=== PATIENT | female | born 1965 | race Caucasian/White ===

== ENCOUNTER 2017-08-06 15:55 | Emergency (ER) | payer MEDICAID, OTHER, SELFPAY ==
[~2017-08-06] VITALS: Ht 154.9 cm; Wt 82.7 kg
[~2017-08-06 15:55] MED LIST: ADVA115INH INH; ALBU17IN INH; ALBU83IN INH; AMLO5TAB2 PO; AZIT500T2 PO; CELE40TA OR; COMBIN INH; CYCL10TA PO; DUONSOL INH; FERR324T2 PO; FLUT22IN INH; HYDR1CAP25 PO; LEXA1TAB PO; LISI20TA3 PO; LYRI75CA PO; MOME50SP; MTV PO; NAPR500T2 PO; NAPR500T3 PO; No Historical Meds; SING10TA32 PO; SOMA250T PO; TESS100C PO; TRAM200T17 PO; TRAZADONE PO; VENTAER INH; [UNRECOGNIZED DRUG - CODE] PO
[2017-08-06] MEDS ORDERED: MECLIZINE 25 MG TABLET PO ONE (18:15)
[2017-08-06 18:38] LABS: BASO # 0.1 10^3/uL (0.0-0.2); BASO % 1.6 % (0.0-1.0); EOS # 0.3 10^3/uL (0.0-0.50); EOS % 5.1 % (0.0-3.0); IMMATURE GRANULOCYTE % 0.3 % (0-0); LYMPH # 1.4 10^3/uL (1.5-4.5); LYMPH % 22.7 % (24.0-44.0); MEAN CORPUSCULAR HEMOGLOBIN 32.3 pg (27.0-33.0); MEAN CORPUSCULAR HGB CONC 34.9 g/dl (32.0-36.5); MEAN CORPUSCULAR VOLUME 92.5 fl (80.0-96.0); MONO # 0.8 10^3/uL (0.0-0.8); MONO % 13.2 % (0.0-5.0); NEUTROPHILS # 3.6 10^3/uL (1.8-7.7); NEUTROPHILS % 57.1 % (36.0-66.0); PLATELET COUNT, AUTOMATED 143 10^3/uL (150-450); RED CELL DISTRIBUTION WIDTH 13.3 % (11.5-14.5); WHITE BLOOD COUNT 6.3 10^3/uL (4.0-10.0)
--- NOTE | 2017-08-06 18:43 | ECGEPIP ---
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
[2017-08-06 19:09] LABS: ANION GAP 7 MEQ/L (8-16); BLOOD UREA NITROGEN 16 MG/DL (7-18); CALCIUM LEVEL 9.4 MG/DL (8.5-10.1); CARBON DIOXIDE LEVEL 27 MEQ/L (21-32); CHLORIDE LEVEL 103 MEQ/L (98-107); GLOMERULAR FILTRATION RATE > 60.0 (>51); GLUCOSE, FASTING 93 MG/DL (70-105); POTASSIUM SERUM 4.2 MEQ/L (3.5-5.1); SODIUM LEVEL 137 MEQ/L (136-145)
--- NOTE | 2017-08-06 19:14 | REP ---
Chest x-ray: Two views. History: Dizziness cough. . Comparison study: July 29, 2016 . Findings: The lungs are well inflated and free of infiltrate. The pleural angles are sharp. The heart size is normal. Pulmonary vasculature is not increased. No significant bony abnormality is seen. Impression: Negative chest x-ray. Signed by Dionte Coates MD 08/06/2017 07:05 P
--- NOTE | 2017-08-06 19:49 | REP ---
Head CT without contrast: History: Dizziness. Comparison study: July 31, 2016 CT findings: Bone window settings demonstrate an intact bony calvarium. There is mild vascular calcification in the distal carotid arteries again seen. There is no evidence of skull fracture or incidental bony calvarial lesion. The visualized paranasal sinuses appear clear. No intraorbital abnormality is seen. On soft tissue window setting images; the lateral, third, and fourth ventricles are normal in size and position. Lomas-white differentiation pattern is normal above and below the tentorium. There are is no evidence of intracranial hemorrhage. No mass, edema, infarction, or midline shift is seen. No extra-axial fluid collection is appreciated. Impression: Mild vascular calcification, otherwise unremarkable noncontrast head CT. Signed by Dionte Coates MD 08/06/2017 08:36 P
[2017-08-06] MEDS ORDERED: amLODIPine 5 MG TAB PO ONE (20:30)
[2017-08-06] MEDS ORDERED: VENTAER IN (21:58)
[2017-08-06] MEDS ORDERED: MECL-68 PO (21:58)
[2017-08-06] MEDS ORDERED: NORV5TAB PO (21:58)
[2017-08-06 22:18] VITALS: BP 168/110
== END 2017-08-06 22:19 | disposition home or self-care (01) ==
LOC: M ED 15:55
DX: H81.399 Other peripheral vertigo, unspecified ear (principal); I10 Essential (primary) hypertension

== ENCOUNTER → 2017-08-27 | Outpatient (CLI) | payer OTHER ==
[~2017-08-27] MED LIST changes: +MECL-68 PO; +NORV5TAB PO; +VENTAER IN
[2017-08-27 10:04] LABS: ALBUMIN/GLOBULIN RATIO 1.11 (1.00-1.93); ALKALINE PHOSPHATASE 69 U/L (45-117); ALT/SGPT 64 U/L (12-78); ANION GAP 7 MEQ/L (8-16); AST/SGOT 23 U/L (7-37); BILIRUBIN,TOTAL 0.4 MG/DL (0.2-1.0); BLOOD UREA NITROGEN 21 MG/DL (7-18); CALCIUM LEVEL 9.5 MG/DL (8.5-10.1); CARBON DIOXIDE LEVEL 28 MEQ/L (21-32); CHLORIDE LEVEL 100 MEQ/L (98-107); CHOLESTEROL LEVEL 262 MG/DL (<200); CREATININE FOR GFR 0.87 MG/DL (0.55-1.02); GLOMERULAR FILTRATION RATE > 60.0 (>51); GLUCOSE, FASTING 77 MG/DL (70-105); POTASSIUM SERUM 4.5 MEQ/L (3.5-5.1); SODIUM LEVEL 135 MEQ/L (136-145); T UPTAKE 34 % (30-39); TOTAL PROTEIN 7.6 GM/DL (6.4-8.2); TRIGLYCERIDES LEVEL 107 MG/DL (<150)
[2017-08-27 10:29] LABS: BASO % 0.3 % (0.0-1.0); EOS # 0.1 10^3/uL (0.0-0.50); EOS % 0.7 % (0.0-3.0); IMMATURE GRANULOCYTE % 0.5 % (0-0); LYMPH # 1.7 10^3/uL (1.5-4.5); LYMPH % 17.5 % (24.0-44.0); MEAN CORPUSCULAR HEMOGLOBIN 32.6 pg (27.0-33.0); MEAN CORPUSCULAR HGB CONC 34.9 g/dl (32.0-36.5); MEAN CORPUSCULAR VOLUME 93.4 fl (80.0-96.0); MONO # 1.1 10^3/uL (0.0-0.8); MONO % 11.4 % (0.0-5.0); NEUTROPHILS # 6.8 10^3/uL (1.8-7.7); NEUTROPHILS % 69.6 % (36.0-66.0); PLATELET COUNT, AUTOMATED 208 10^3/uL (150-450); WHITE BLOOD COUNT 9.7 10^3/uL (4.0-10.0)
== END ==
LOC: M LAB 08:19
PROVIDERS: ATTEND Physician Assistant Medical
DX: R07.9 Chest pain, unspecified (principal)

== ENCOUNTER → 2017-11-20 | Outpatient (CLI) | payer OTHER | LOC: M WUC 15:15 | DX: S83.412A Sprain of medial collateral ligament of left knee, initial encounter (principal); X58.XXXA Exposure to other specified factors, initial encounter; Y92.89 Other specified places as the place of occurrence of the external cause; Y99.9 Unspecified external cause status; Y93.9 Activity, unspecified | CPT/HCPCS: 73564 ==

== ENCOUNTER → 2018-02-12 | Outpatient (REF) | payer OTHER ==
[2018-02-12 12:50] LABS: BASO # 0.1 10^3/uL (0.0-0.2); BASO % 1.3 % (0.0-1.0); EOS # 0.2 10^3/uL (0.0-0.50); EOS % 2.5 % (0.0-3.0); HEMATOCRIT 45.7 % (36.0-47.0); HEMOGLOBIN 16.4 g/dl (12.0-15.5); IMMATURE GRANULOCYTE % 0.4 % (0-3.0); LYMPH # 1.6 10^3/uL (1.5-4.5); LYMPH % 18.9 % (24.0-44.0); MEAN CORPUSCULAR HEMOGLOBIN 32.3 pg (27.0-33.0); MEAN CORPUSCULAR HGB CONC 35.9 g/dl (32.0-36.5); MEAN CORPUSCULAR VOLUME 90.1 fl (80.0-96.0); MONO # 0.9 10^3/uL (0.0-0.8); MONO % 11.2 % (0.0-5.0); NEUTROPHILS # 5.5 10^3/uL (1.8-7.7); NEUTROPHILS % 65.7 % (36.0-66.0); PLATELET COUNT, AUTOMATED 198 10^3/uL (150-450); RED BLOOD COUNT 5.07 10^6/uL (4.00-5.40); RED CELL DISTRIBUTION WIDTH 12.6 % (11.5-14.5); WHITE BLOOD COUNT 8.3 10^3/uL (4.0-10.0)
[2018-02-12 13:26] LABS: ESTIMATED AVERAGE GLUCOSE 126 MG/DL (60-110)
[2018-02-12 13:30] LABS: ALBUMIN 4.2 GM/DL (3.2-5.2); ALBUMIN/GLOBULIN RATIO 1.08 (1.00-1.93); ALKALINE PHOSPHATASE 93 U/L (45-117); ALT/SGPT 70 U/L (12-78); ANION GAP 8 MEQ/L (8-16); AST/SGOT 30 U/L (7-37); BILIRUBIN,TOTAL 0.5 MG/DL (0.2-1.0); BLOOD UREA NITROGEN 48 MG/DL (7-18); CARBON DIOXIDE LEVEL 29 MEQ/L (21-32); CHLORIDE LEVEL 93 MEQ/L (98-107); CHOLESTEROL LEVEL 234 MG/DL (<200); CHOLESTEROL RISK RATIO 4.333 (<5); CREATININE FOR GFR 2.16 MG/DL (0.55-1.30); GLOMERULAR FILTRATION RATE 25.6 (>51); GLUCOSE, FASTING 117 MG/DL (70-100); HDL CHOLESTEROL 54 MG/DL (>40); LDL CHOLESTEROL 132.6 MG/DL (<100); NON-HDL-C 180 MG/DL; POTASSIUM SERUM 4.7 MEQ/L (3.5-5.1); SODIUM LEVEL 130 MEQ/L (136-145); TOTAL PROTEIN 8.1 GM/DL (6.4-8.2); TRIGLYCERIDES LEVEL 237 MG/DL (<150)
== END ==
LOC: M LAB REF 12:29
DX: R11.2 Nausea with vomiting, unspecified (principal)

== ENCOUNTER → 2018-02-19 | Outpatient (CLI) | payer OTHER | LOC: M RAD 08:31 | DX: R94.4 Abnormal results of kidney function studies (principal) | CPT/HCPCS: 76775 ==

== ENCOUNTER 2018-03-15 11:18 | Emergency (ER) | payer OTHER ==
[2018-03-15] MEDS: ALPRAZolam 0.5 MG TAB PO (12:52)
== END 2018-03-15 13:24 | disposition home or self-care (01) ==
LOC: M ED 11:18
DX: F41.1 Generalized anxiety disorder (principal); I10 Essential (primary) hypertension; J44.9 Chronic obstructive pulmonary disease, unspecified; F33.9 Major depressive disorder, recurrent, unspecified; K21.9 Gastro-esophageal reflux disease without esophagitis; Z79.899 Other long term (current) drug therapy; Z88.0 Allergy status to penicillin; F17.210 Nicotine dependence, cigarettes, uncomplicated
CPT/HCPCS: 99283

== ENCOUNTER 2018-05-04 13:24 | Emergency (ER) | payer OTHER | END 2018-05-04 14:36 | disposition home or self-care (01) | LOC: M ED 13:24 | DX: S10.86XA Insect bite of other specified part of neck, initial encounter (principal); W57.XXXA Bitten or stung by nonvenomous insect and other nonvenomous arthropods, initial encounter; J44.9 Chronic obstructive pulmonary disease, unspecified; J45.909 Unspecified asthma, uncomplicated; I10 Essential (primary) hypertension; M54.9 Dorsalgia, unspecified; D64.9 Anemia, unspecified; K21.9 Gastro-esophageal reflux disease without esophagitis; F41.9 Anxiety disorder, unspecified; F32.9 Major depressive disorder, single episode, unspecified; F43.10 Post-traumatic stress disorder, unspecified; R51 Headache; F17.200 Nicotine dependence, unspecified, uncomplicated; Z88.0 Allergy status to penicillin; Z91.030 Bee allergy status; Z79.899 Other long term (current) drug therapy | CPT/HCPCS: 99283 ==

== ENCOUNTER 2018-07-23 12:56 | Emergency (ER) | payer MEDICAID, OTHER, SELFPAY ==
[2018-07-23 14:26] LABS: AMORPHOUS SEDIMENT SMALL (NEGATIVE); APPEARANCE, URINE CLEAR (CLEAR); BACTERIA, URINE AUTO NEGATIVE (NEGATIVE); BILIRUBIN, URINE AUTO NEGATIVE (NEGATIVE); BLOOD, URINE BLOOD NEGATIVE (NEGATIVE); COLOR, URINE STRAW (YELLOW); GLUCOSE, URINE (UA) AUTO NEGATIVE (NEGATIVE); KETONE, URINE AUTO NEGATIVE (NEGATIVE); LEUKOCYTE ESTERASE, URINE AUTO NEGATIVE (NEGATIVE); NITRITE, URINE AUTO NEGATIVE (NEGATIVE); PROTEIN, URINE AUTO NEGATIVE (NEGATIVE); RBC, URINE AUTO 0 /HPF (0-3); SPECIFIC GRAVITY URINE AUTO 1.008 (1.002-1.035); SQUAMOUS EPITHELIAL CELL UR AU 1 /HPF (0-6); UROBILINOGEN, URINE AUTO 0.2 mg/dL (0.0-2.0); WBC, URINE AUTO 0 /HPF (0-3)
[2018-07-23] MEDS: KETOROLAC 30 MG/ML VIAL (J1885) IV ×3 (14:35)
[2018-07-23 14:53] LABS: BASO # 0.1 10^3/uL (0.0-0.2); BASO % 1.4 % (0.0-1.0); EOS # 0.3 10^3/uL (0.0-0.50); EOS % 3.8 % (0.0-3.0); HEMOGLOBIN 15.9 g/dl (12.0-15.5); IMMATURE GRANULOCYTE % 0.4 % (0-3.0); LYMPH # 2.1 10^3/uL (1.5-4.5); LYMPH % 29.6 % (24.0-44.0); MEAN CORPUSCULAR HEMOGLOBIN 32.2 pg (27.0-33.0); MEAN CORPUSCULAR HGB CONC 35.3 g/dl (32.0-36.5); MEAN CORPUSCULAR VOLUME 91.1 fl (80.0-96.0); MONO # 0.8 10^3/uL (0.0-0.8); MONO % 10.8 % (0.0-5.0); NEUTROPHILS # 3.9 10^3/uL (1.8-7.7); PLATELET COUNT, AUTOMATED 174 10^3/uL (150-450); RED BLOOD COUNT 4.94 10^6/uL (4.00-5.40); RED CELL DISTRIBUTION WIDTH 12.7 % (11.5-14.5); WHITE BLOOD COUNT 7.1 10^3/uL (4.0-10.0)
[2018-07-23 15:12] LABS: ANION GAP 8 MEQ/L (8-16); BLOOD UREA NITROGEN 10 MG/DL (7-18); C REACTIVE PROTEIN QUANTITATIV < 0.30 MG/DL (0.00-0.30); CALCIUM LEVEL 9.4 MG/DL (8.5-10.1); CARBON DIOXIDE LEVEL 25 MEQ/L (21-32); CHLORIDE LEVEL 103 MEQ/L (98-107); CREATININE FOR GFR 0.82 MG/DL (0.55-1.30); GLOMERULAR FILTRATION RATE > 60.0 (>51); GLUCOSE, FASTING 91 MG/DL (70-100); POTASSIUM SERUM 4.3 MEQ/L (3.5-5.1); SODIUM LEVEL 136 MEQ/L (136-145)
== END 2018-07-23 15:29 | disposition home or self-care (01) ==
LOC: M ED 12:56
DX: N20.0 Calculus of kidney (principal); R10.9 Unspecified abdominal pain; Z87.442 Personal history of urinary calculi; I10 Essential (primary) hypertension; J44.9 Chronic obstructive pulmonary disease, unspecified; J45.909 Unspecified asthma, uncomplicated; K21.9 Gastro-esophageal reflux disease without esophagitis; D64.9 Anemia, unspecified; F41.9 Anxiety disorder, unspecified; F32.9 Major depressive disorder, single episode, unspecified; F43.10 Post-traumatic stress disorder, unspecified; F17.200 Nicotine dependence, unspecified, uncomplicated; Z88.0 Allergy status to penicillin; Z91.030 Bee allergy status; Z79.899 Other long term (current) drug therapy
CPT/HCPCS: J1885

== ENCOUNTER 2018-09-01 21:09 | Inpatient (IN) | payer OTHER, SELFPAY ==
[~2018-09-01] VITALS: Ht 154.9 cm; Wt 86.0 kg
[~2018-09-01 21:09] MED LIST changes: +ACET30TAB PO; -AMLO5TAB2 PO; +AMLO5TAB4 PO; +IBUP-1022 PO; +LISI20TA3; +NAPR-885 PO; -NAPR500T3 PO; +XANA0.5T PO
[2018-09-01] MEDS ORDERED: LISI10TA4 PO (21:25)
[2018-09-01] MEDS ORDERED: KLON0.5T PO (21:25)
[2018-09-01] MEDS ORDERED: METH1TAB40 PO (21:25)
[2018-09-01] MEDS ORDERED: ACET-683 PO (21:25)
[2018-09-01] MEDS ORDERED: ONDANSETRON 4MG/2ML VIAL (J2405) IV ONE (22:00)
[2018-09-01] MEDS ORDERED: NS 1,000 ML IV ONE (22:00)
[2018-09-01] MEDS ORDERED: MORPHINE 4 MG/ML 1ML VIAL/SYRINGE (J2270) IV PRN (22:00)
[2018-09-01 22:04] LABS: APPEARANCE, URINE HAZY (CLEAR); BACTERIA, URINE AUTO NEGATIVE (NEGATIVE); BILIRUBIN, URINE AUTO NEGATIVE (NEGATIVE); BLOOD, URINE BLOOD NEGATIVE (NEGATIVE); COLOR, URINE YELLOW (YELLOW); GLUCOSE, URINE (UA) AUTO 1+ mg/dL (NEGATIVE); KETONE, URINE AUTO NEGATIVE (NEGATIVE); LEUKOCYTE ESTERASE, URINE AUTO NEGATIVE (NEGATIVE); MUCUS, URINE SMALL (NEGATIVE); NITRITE, URINE AUTO NEGATIVE (NEGATIVE); PROTEIN, URINE AUTO NEGATIVE (NEGATIVE); RBC, URINE AUTO 1 /HPF (0-3); SPECIFIC GRAVITY URINE AUTO 1.018 (1.002-1.035); SQUAMOUS EPITHELIAL CELL UR AU 1 /HPF (0-6); TRANSITIONAL EPITHELIAL AUTO 1 /HPF; WBC, URINE AUTO 2 /HPF (0-3)
[2018-09-01] MEDS ORDERED: KETOROLAC 30 MG/ML VIAL (J1885) IV ONE (22:15)
[2018-09-01 22:20] LABS: BASO % 0.2 % (0.0-1.0); EOS % 0.1 % (0.0-3.0); HEMATOCRIT 43.6 % (36.0-47.0); HEMOGLOBIN 15.9 g/dl (12.0-15.5); LYMPH % 6.2 % (24.0-44.0); MEAN CORPUSCULAR HEMOGLOBIN 32.3 pg (27.0-33.0); MEAN CORPUSCULAR HGB CONC 36.5 g/dl (32.0-36.5); MEAN CORPUSCULAR VOLUME 88.4 fl (80.0-96.0); MONO # 1.6 10^3/uL (0.0-0.8); MONO % 10.1 % (0.0-5.0); NEUTROPHILS # 12.9 10^3/uL (1.8-7.7); NEUTROPHILS % 82.6 % (36.0-66.0); PLATELET COUNT, AUTOMATED 168 10^3/uL (150-450); RED BLOOD COUNT 4.93 10^6/uL (4.00-5.40); WHITE BLOOD COUNT 15.6 10^3/uL (4.0-10.0)
[2018-09-01 22:29] LABS: ALBUMIN 3.7 GM/DL (3.2-5.2); BILIRUBIN,DIRECT 0.4 MG/DL (0.0-0.2); BILIRUBIN,TOTAL 1.1 MG/DL (0.2-1.0); CREATININE FOR GFR 1.34 MG/DL (0.55-1.30); GLOMERULAR FILTRATION RATE 44.4 (>51); POTASSIUM SERUM 3.9 MEQ/L (3.5-5.1); TOTAL PROTEIN 7.6 GM/DL (6.4-8.2)
[2018-09-01] MEDS ORDERED: ISOVUE-370 76% 100ML VIAL (Q9967) As Ordered ONE (22:32)
--- NOTE | 2018-09-02 00:01 | REPVR ---
EXAM: CT Abdomen and Pelvis With Contrast EXAM DATE/TIME: 09/01/2018 10:59 PM CLINICAL HISTORY: 53 years old, female; Pain; Abdominal pain; Flank; Left lower quadrant (llq); Additional info: Llq pain TECHNIQUE: Axial computed tomography images of the abdomen and pelvis with intravenous contrast. All CT scans at this facility use at least one of these dose optimization techniques: automated exposure control; mA and/or kV adjustment per patient size (includes targeted exams where dose is matched to clinical indication); or iterative reconstruction. Coronal and sagittal reformatted images were created and reviewed. CONTRAST: 100 ml of ISOVUE 370 administered intravenously. COMPARISON: CT ABD PELVIS W/O CONTRAST 07/23/2018 2:24 PM FINDINGS: Lower thorax: No acute findings. ABDOMEN: Liver: There is a diffuse decrease in hepatic parenchymal density, consistent with fatty infiltration. Gallbladder and bile ducts: Thick walled gallbladder. No calculi or pericholecystic fluid demonstrated. Clinical correlation to exclude cholecystitis suggested. Ultrasound correlation would be helpful. Pancreas: Normal. No ductal dilation. Spleen: Normal. No splenomegaly. Adrenals: Bilateral adrenal hyperplasia. Kidneys and ureters: Punctate nonobstructive calculus left kidney. Stomach and bowel: Mild to moderate sigmoid diverticulosis. There is a focus of acute inflammation in the sigmoid colon with extraluminal gas demonstrated adjacent to the inflamed segment surrounded by gross inflammation in the pericolonic fat. Findings consistent with localized perforated diverticulitis. Crohn disease involvement not excluded (see below). There several loops of enhancing thick walled small bowel in the mid abdomen left lower quadrant as well as involving the terminal ileum, findings which may suggest inflammatory bowel disease such as Crohn disease. Mildly dilated loops of regional small bowel may represent a localized ileus although mild obstruction is not excluded. Appendix: No evidence of appendicitis. PELVIS: Bladder: Thickened bladder wall likely related to incomplete distention. Clinical correlation to exclude cystitis suggested. Reproductive: Unremarkable as visualized. ABDOMEN and PELVIS: Intraperitoneal space: Normal. No free air. No significant fluid collection. Bones/joints: No acute fracture. No dislocation. Soft tissues: Unremarkable. Vasculature: The aorta demonstrates mild atherosclerotic calcification. Lymph nodes: Normal. No enlarged lymph nodes. IMPRESSION: 1. There is a diffuse decrease in hepatic parenchymal density, consistent with fatty infiltration. 2. Thick walled gallbladder. Clinical correlation to exclude cholecystitis suggested. Ultrasound correlation would be helpful. 3. Mild to moderate sigmoid diverticulosis with an acutely inflamed sigmoid colon and a focus of localized extraluminal gas demonstrated adjacent to the inflamed segment. Findings consistent with localized perforated diverticulitis. Crohn disease involvement not excluded (see below). 4. Thickened bladder wall likely related to incomplete distention. Clinical correlation to exclude cystitis suggested. 5. There are several loops of enhancing thick walled small bowel in the mid abdomen left lower quadrant as well as involving the terminal ileum, findings which may suggest inflammatory bowel disease such as Crohn disease. Mildly dilated loops of regional small bowel may represent a localized ileus although mild obstruction is not excluded. Electronically signed by: Emeka Carrasco On 09/02/2018 00:00:54 AM
[2018-09-02] MEDS ORDERED: VENTAER INH (00:42)
[2018-09-02] MEDS ORDERED: metroNIDAZOLE 500 MG in APPROPRIATE DILUENT 1 EA IV ONE (00:45)
[2018-09-02] MEDS ORDERED: CIPROFLOXACIN 400 MG in APPROPRIATE DILUENT 1 EA IV ONE (00:45)
[2018-09-02] MEDS ORDERED: LR 1,000 ML IV SCH (01:24)
[2018-09-02] MEDS ORDERED: ALBUTEROL SULFATE 2.5 MG/0.5 ML INH NEB SOLN INH PRN (01:30)
[2018-09-02] MEDS ORDERED: ACETAMINOPHEN TAB 650MG DOSE (2X325MG) PO PRN (01:30)
[2018-09-02] MEDS ORDERED: METOCLOPRAMIDE INJ 10MG/2ML VIAL (J2765) IV PRN (01:30)
[2018-09-02] MEDS ORDERED: clonazePAM 0.5 MG TAB PO PRN (01:30)
[2018-09-02] MEDS: NORCO, ANEXSIA 5/325MG TABLET (HYDROcodone/ACETAMINOPHEN) PO PRN ×2 (01:46→05:53)
[2018-09-02 03:06] VITALS: BP 103/66
[2018-09-02] MEDS: NS 1,000 ML IV SCH ×3 (03:23→21:40)
[2018-09-02 06:00] VITALS: BP 100/58
[2018-09-02 07:53] LABS: BASO # 0.1 10^3/uL (0.0-0.2); BASO % 0.4 % (0.0-1.0); EOS # 0.1 10^3/uL (0.0-0.50); EOS % 0.5 % (0.0-3.0); LYMPH # 1.4 10^3/uL (1.5-4.5); LYMPH % 10.6 % (24.0-44.0); MEAN CORPUSCULAR HEMOGLOBIN 32.3 pg (27.0-33.0); MEAN CORPUSCULAR HGB CONC 36.8 g/dl (32.0-36.5); MEAN CORPUSCULAR VOLUME 87.8 fl (80.0-96.0); MONO # 1.4 10^3/uL (0.0-0.8); MONO % 10.7 % (0.0-5.0); NEUTROPHILS # 10.2 10^3/uL (1.8-7.7); NEUTROPHILS % 77.4 % (36.0-66.0); PLATELET COUNT, AUTOMATED 153 10^3/uL (150-450); RED BLOOD COUNT 4.33 10^6/uL (4.00-5.40); WHITE BLOOD COUNT 13.2 10^3/uL (4.0-10.0)
[2018-09-02 08:07] LABS: CALCIUM LEVEL 8.3 MG/DL (8.5-10.1); CREATININE FOR GFR 1.25 MG/DL (0.55-1.30); GLOMERULAR FILTRATION RATE 48.1 (>51); POTASSIUM SERUM 3.3 MEQ/L (3.5-5.1)
[2018-09-02] MEDS: metroNIDAZOLE 500 MG in APPROPRIATE DILUENT 1 EA IV SCH ×3 (08:33→21:40)
[2018-09-02 10:00] VITALS: BP 94/66
[2018-09-02] MEDS: CIPROFLOXACIN 400 MG in APPROPRIATE DILUENT 1 EA IV SCH (12:27)
[2018-09-02] MEDS: HYDROMORPHONE HCL 0.5 MG/ 0.5 ML SYRINGE (J1170 PER 1) IV PRN ×3 (12:28→21:51)
[2018-09-02] MEDS: POTASSIUM CHLORIDE 10 MEQ SR TABLET PO SCH ×2 (12:28→18:36)
--- NOTE | 2018-09-02 13:43 | HPE ---
DATE OF CONSULTATION: 09/02/2018 ADMISSION DIAGNOSIS: Contained sigmoid diverticulum perforation. HISTORY OF PRESENT ILLNESS: The patient is a pleasant 53-year-old woman who reported the fairly sudden onset of pain at about 5 or 6 o'clock in the morning on Sunday, 09/01. It initially stayed fairly constant in severity and then seemed to improve a bit but again became worse about 1700 in the evening. The patient reported nausea and much of the day and had no significant oral intake. She presented to the emergency department just after 9 o'clock in the evening. The patient reports no prior colonoscopy or other colon evaluation. She has had no rectal bleeding. She reports that she has had diminished stool in yesterday and nothing today but has generally been having regular bowel movements. She denies any fevers or chills. In the emergency department. She underwent evaluation with laboratory studies and subsequently had a CT scan of the abdomen and pelvis. The CT scan was interpreted by radiology as some sigmoid diverticulosis. The radiologist reported a focus of acute inflammation in the sigmoid colon with extraluminal gas demonstrated adjacent to the inflamed segment with some inflammation in the surrounding pericolonic fat. There were several loops of somewhat thickened small bowel in the mid abdomen. The radiologist raised the possibility of inflammatory bowel disease. I was consulted and the patient is now admitted for management of what appears to be a contained perforation of a sigmoid diverticulum. MEDICATIONS The patient's usual medications include: - acetaminophen 500 mg p.o. three times daily as needed for pain - albuterol nebulizers one every 6 hours as needed for shortness of breath or wheezing - Ventolin inhaler two puffs every 4-6 hours as needed for wheezing - Klonopin 0.5 mg p.o. twice daily as needed for anxiety - lisinopril 10 mg p.o. every evening at bedtime - lisinopril/hydrochlorothiazide 20/25 mg 1 tablet p.o. daily - methocarbamol 500 mg p.o. three times daily ALLERGIES: BEE VENOM and PENICILLIN. She reports that the penicillin causes her breathing to become more difficult but she does not describe a definite anaphylactic reaction. PAST SURGICAL HISTORY: Is significant for three sections with a tubal ligation performed with her last section. She has had surgery on her knee many years ago and has had ovarian cysts addressed surgically as well. MEDICAL HISTORY: Significant for some gastroesophageal reflux. She has chronic obstructive pulmonary disease and asthma. She is a long-time smoker. She has a history of hypertension but denies any other significant cardiac issues. She has a history of arthritis and has some significant back pain. She has a history of significant anxiety, as well as depression. The patient did have an echocardiogram performed back in July [address] Redd whose impression was that she had a normal-appearing echocardiogram at that time. The patient reports that she is being evaluated for some kidney issues, but she cannot be any more clear than that about what the issues are. The patient is postmenopausal. Her records indicate that she is diagnosed with post-traumatic stress disorder. SOCIAL HISTORY: The patient smokes about a quarter pack per day of cigarettes. She reports alcohol intake about once or twice per week. FAMILY HISTORY: The patient reports no history of colorectal cancer. REVIEW OF SYSTEMS: The patient denies any chest pain or palpitations. She denies shortness of breath or cough out of the ordinary. She has no history of deep vein thrombosis (DVT) or pulmonary embolus. She denies any history of nausea or vomiting prior to this. She has not had a similar pains. She has had no melena or hematochezia. She has been voiding well with no dysuria or hematuria. She does have chronic pain in her back, in her legs and in her shoulders. Remainder of the review of systems is unremarkable. PHYSICAL EXAMINATION: Physical exam reveals a pleasant, somewhat obese woman lying quietly on the hospital stretcher. She is lying on her left side somewhat curled up and holding her stomach. She at times shows reaction to crampy intermittent pains. Her weight is recorded as 81.8 kg with a height of 61 inches giving her a Body Mass Index (BMI) of 34. The patient is alert and oriented. Her skin is warm and dry. Mucous membranes are somewhat tacky. Neck is without palpable mass and there is no bruit. Heart exam shows a regular rate and rhythm. The lungs are generally clear. Her abdomen is somewhat protuberant. She has an old lower abdominal scar from her sections. She does have bowel sounds present. There is no evident hernia. Palpation reveals the abdomen to be soft. She has tenderness in the lower abdomen approximately from the midline and extending to the left lower quadrant near the anterior superior iliac spine. The tenderness I would estimate as mild to moderate in severity. There is no rebound and no guarding. Lower extremities are without edema and she has palpable radial and dorsalis pedis pulses bilaterally. LABORATORY STUDIES: In the emergency department show white count of 16,000, hemoglobin 16, hematocrit 44 and platelet count of 168,000. Differential count shows 83% neutrophils, 6% lymphocytes and 10% monocytes. Chemistry profile shows a sodium of 126, potassium 3.9, chloride 89, CO2 of 27, BUN of 24, creatinine 1.3 and glucose of 139. Her total bilirubin was 1.1 with a direct of 0.4 and the other liver function tests are normal. Amylase and lipase were normal. She had a lactic acid of only 1.4. Urinalysis was not suggestive of a urinary tract infection. Imaging included a CT scan of the abdomen and pelvis. CT scan was performed and I reviewed the images personally. She does have what appears to be a mildly thickened gallbladder wall. There are several loops of small bowel that may be slightly thickened in the lower midabdomen. Her sigmoid colon appears somewhat thickened and there is some inflammation along the upper to midportion of the sigmoid colon. There is some air which appears to be contained within the pericolonic fatty tissues adjacent to this area of the sigmoid colon. There is no free air within the abdomen that can be appreciated. There is no significant amount of free fluid. IMPRESSION: 1. Contained perforation of a sigmoid diverticulum. 2. Chronic obstructive pulmonary disease. 3. Asthma. 4. Hypertension. 5. Chronic pain of the legs back and shoulder. 6. Hypertension. 7. Anxiety and history of panic attacks. PLAN: The patient will be admitted to the hospital. She has been started on ciprofloxacin and Flagyl given her history of penicillin allergy. She will be kept n.p.o. except for a few ice chips or sips of water. An nasogastric tube does not seem necessary. She will be provided with a range of pain medications available on an as-needed basis. Albuterol nebs will be continued on an as needed basis. She will be kept on a small amount of nasal cannula oxygen. Repeat laboratory studies will be obtained in the morning. The patient will be followed closely by serial exams. If she develops significantly worsened pain or evidence of spreading pain or other signs of possible peripheral free perforation of this area then repeat imaging will most likely be required to confirm this followed by surgery. I advised the patient and her daughter who was with her that often the kind of perforation she has will just heal with antibiotic therapy and nonoperative management. However, sometimes this can progress to a free perforation and surgery is required to resect the perforated segment and most likely create a colostomy. The patient had an opportunity to ask questions. She agrees to proceed with the treatment as I have outlined it. MICHAELA
[2018-09-02 14:00] VITALS: BP 109/58
[2018-09-02 18:00] VITALS: BP 114/70
[2018-09-02 22:00] VITALS: BP 120/76
[2018-09-03 02:00] VITALS: BP 117/59
[2018-09-03] MEDS: HYDROMORPHONE HCL 0.5 MG/ 0.5 ML SYRINGE (J1170 PER 1) IV PRN ×6 (02:11→20:56)
[2018-09-03] MEDS: CIPROFLOXACIN 400 MG in APPROPRIATE DILUENT 1 EA IV SCH ×2 (02:12→12:55)
[2018-09-03] MEDS: metroNIDAZOLE 500 MG in APPROPRIATE DILUENT 1 EA IV SCH ×4 (03:36→19:34)
--- NOTE | 2018-09-03 05:40 | ECGEPIP ---
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
[2018-09-03 06:00] VITALS: BP 122/78
[2018-09-03] MEDS: NS 1,000 ML IV SCH ×3 (06:36→21:54)
[2018-09-03 07:45] LABS: BASO # 0.1 10^3/uL (0.0-0.2); BASO % 0.3 % (0.0-1.0); EOS # 0.1 10^3/uL (0.0-0.50); EOS % 0.5 % (0.0-3.0); HEMATOCRIT 39.2 % (36.0-47.0); HEMOGLOBIN 13.7 g/dl (12.0-15.5); LYMPH # 0.8 10^3/uL (1.5-4.5); MEAN CORPUSCULAR HEMOGLOBIN 31.9 pg (27.0-33.0); MEAN CORPUSCULAR HGB CONC 34.9 g/dl (32.0-36.5); MEAN CORPUSCULAR VOLUME 91.4 fl (80.0-96.0); MONO # 1.5 10^3/uL (0.0-0.8); MONO % 10.1 % (0.0-5.0); NEUTROPHILS # 12.7 10^3/uL (1.8-7.7); NEUTROPHILS % 83.6 % (36.0-66.0); PLATELET COUNT, AUTOMATED 130 10^3/uL (150-450); RED BLOOD COUNT 4.29 10^6/uL (4.00-5.40); WHITE BLOOD COUNT 15.2 10^3/uL (4.0-10.0)
--- NOTE | 2018-09-03 08:09 | IPN ---
DATE: 09/02/2018 The patient was admitted early this morning with a contained sigmoid diverticular perforation. There is some air in the soft tissue adjacent to the sigmoid colon. She did not have any free air. She was started on Cipro and Flagyl for antibiotic coverage because of an allergy to penicillins. She has done acceptably overnight with her pain remaining about the same. She had no nausea or vomiting. Vital signs: The patient has been afebrile since admission, pulse is in the 70s to low 90s. Her blood pressure is good and her room air oxygen saturation is normal. Intake and output is not recorded. The patient reports that she has voided several times since admission, however. PHYSICAL EXAM: The patient is alert and oriented. Skin is warm and dry. Heart exam shows a regular rhythm. The abdomen is obese. She has some bowel sounds present. She has some mild to moderate tenderness in the right lower quadrant and the left lower midabdomen and left lower quadrant. She has moderate direct tenderness. She does not have any significant guarding. This would seem to be about the same as when she was admitted earlier today. LABORATORY STUDIES: A CBC shows a white count of 13,000 with hemoglobin 14, hematocrit 38 and platelet count of 153,000. Differential count shows 77% neutrophils, 11% lymphocytes and 11% monocytes. Chemistry profile shows a sodium of 129, potassium 3.3, chloride 95, CO2 of 26, BUN is 25 and creatinine of 1.2 and her glucose is 107. Her electrolytes have slightly improved from yesterday though her potassium is now down slightly. IMPRESSION: The patient is doing acceptably now following almost 12 hours of treatment for her contained perforation. There is no evidence of any free perforation at this time. PLAN: The patient will be continued on her IV antibiotics. She will be kept nothing by mouth except for a few ice chips. She will receive analgesics as necessary. She will be monitored clinically for any evidence of free perforation.
[2018-09-03 08:11] LABS: ALBUMIN 2.7 GM/DL (3.2-5.2); ALT/SGPT 26 U/L (12-78); BILIRUBIN,TOTAL 1.2 MG/DL (0.2-1.0); BLOOD UREA NITROGEN 10 MG/DL (7-18); CALCIUM LEVEL 8.3 MG/DL (8.5-10.1); CARBON DIOXIDE LEVEL 25 MEQ/L (21-32); CHLORIDE LEVEL 97 MEQ/L (98-107); CREATININE FOR GFR 0.74 MG/DL (0.55-1.30); GLOMERULAR FILTRATION RATE > 60.0 (>51); GLUCOSE, FASTING 99 MG/DL (70-100); POTASSIUM SERUM 3.7 MEQ/L (3.5-5.1); SODIUM LEVEL 128 MEQ/L (136-145); TOTAL PROTEIN 6.3 GM/DL (6.4-8.2)
[2018-09-03 10:00] VITALS: BP 124/74
[2018-09-03 14:00] VITALS: BP 127/75
[2018-09-03 18:00] VITALS: BP 128/74
[2018-09-03 22:00] VITALS: BP 135/72
[2018-09-04] MEDS: CIPROFLOXACIN 400 MG in APPROPRIATE DILUENT 1 EA IV SCH ×2 (00:51→12:23)
[2018-09-04] MEDS: HYDROMORPHONE HCL 0.5 MG/ 0.5 ML SYRINGE (J1170 PER 1) IV PRN ×7 (00:55→22:14)
[2018-09-04 02:00] VITALS: BP 110/59
[2018-09-04] MEDS: metroNIDAZOLE 500 MG in APPROPRIATE DILUENT 1 EA IV SCH ×4 (02:08→19:39)
[2018-09-04 05:41] LABS: BASO # 0.1 10^3/uL (0.0-0.2); BASO % 0.5 % (0.0-1.0); EOS # 0.2 10^3/uL (0.0-0.50); EOS % 1.6 % (0.0-3.0); HEMATOCRIT 37.1 % (36.0-47.0); HEMOGLOBIN 13.1 g/dl (12.0-15.5); LYMPH # 0.9 10^3/uL (1.5-4.5); LYMPH % 6.9 % (24.0-44.0); MEAN CORPUSCULAR HEMOGLOBIN 31.3 pg (27.0-33.0); MEAN CORPUSCULAR HGB CONC 35.3 g/dl (32.0-36.5); MEAN CORPUSCULAR VOLUME 88.8 fl (80.0-96.0); MONO # 1.4 10^3/uL (0.0-0.8); MONO % 11.1 % (0.0-5.0); NEUTROPHILS % 79.2 % (36.0-66.0); PLATELET COUNT, AUTOMATED 157 10^3/uL (150-450); RED BLOOD COUNT 4.18 10^6/uL (4.00-5.40); WHITE BLOOD COUNT 12.6 10^3/uL (4.0-10.0)
[2018-09-04 05:58] LABS: BLOOD UREA NITROGEN 8 MG/DL (7-18); CALCIUM LEVEL 8.2 MG/DL (8.5-10.1); CARBON DIOXIDE LEVEL 25 MEQ/L (21-32); CHLORIDE LEVEL 96 MEQ/L (98-107); CREATININE FOR GFR 0.67 MG/DL (0.55-1.30); GLOMERULAR FILTRATION RATE > 60.0 (>51); GLUCOSE, FASTING 106 MG/DL (70-100); POTASSIUM SERUM 3.2 MEQ/L (3.5-5.1); SODIUM LEVEL 130 MEQ/L (136-145)
[2018-09-04 06:00] VITALS: BP 119/71
[2018-09-04 10:00] VITALS: BP 133/79
[2018-09-04] MEDS: NS 1,000 ML IV SCH (11:40)
[2018-09-04 14:00] VITALS: BP 126/80
[2018-09-04] MEDS: POTASSIUM CHLORIDE 10 MEQ SR TABLET PO SCH ×2 (15:26→20:40)
--- NOTE | 2018-09-04 16:22 | IPN ---
DATE: 09/03/2018 HISTORY: The patient was admitted on the with abdominal pain and a CT scan showing a contained perforation with some air in the soft tissues around the sigmoid colon. She was placed on intravenous (IV) antibiotics and kept nothing by mouth and received IV hydration. She reports that she feels a little better today with less discomfort. She has passed some stool. Her urine output she reports is good. VITAL SIGNS: Show that the patient has been afebrile over the past 24 hours. Pulse is in the 80s and 90s. Blood pressure is good and her room air oxygen saturation is normal. INTAKE AND OUTPUT: Yesterday recorded 725 in with 1400 out, though clearly she had received more IV intake than that. PHYSICAL EXAM: The patient is alert and appears more comfortable. Heart exam shows a regular rhythm and the lungs are clear. The abdomen is mildly obese. She has bowel sounds present and the abdomen is soft. She has some tenderness low in the left lower quadrant, which seems less pronounced than yesterday. LABORATORY STUDIES: Show today that she has a white count of 15,000 with a differential showing 84% neutrophils, 5% lymphocytes and 10% monocytes. Hemoglobin is 14 with a hematocrit of 39 and platelet count is 130,000. Chemistry profile shows sodium 128, potassium 3.7, chloride 97, CO2 of 25, BUN is 10, creatinine 0.7 and the glucose is 99. Her creatinine is down significantly from 1.34 when she was in the emergency department. IMPRESSION: The patient is doing well with no sign of worsening or free perforation. PLAN: We will continue antibiotics. I will let her try some clear liquids now and cut her IV rate back somewhat. We will check her labs again in the morning.
[2018-09-04 18:00] VITALS: BP 138/91
[2018-09-04 22:00] VITALS: BP 117/69
[2018-09-05] MEDS: CIPROFLOXACIN 400 MG in APPROPRIATE DILUENT 1 EA IV SCH ×2 (00:48→12:33)
[2018-09-05] MEDS: HYDROMORPHONE HCL 0.5 MG/ 0.5 ML SYRINGE (J1170 PER 1) IV PRN (01:30)
[2018-09-05] MEDS: metroNIDAZOLE 500 MG in APPROPRIATE DILUENT 1 EA IV SCH ×4 (01:56→20:34)
[2018-09-05 02:00] VITALS: BP 116/64
[2018-09-05 06:00] VITALS: BP 114/64
[2018-09-05 06:04] LABS: BASO # 0.1 10^3/uL (0.0-0.2); BASO % 0.7 % (0.0-1.0); EOS # 0.3 10^3/uL (0.0-0.50); EOS % 2.8 % (0.0-3.0); HEMATOCRIT 36.8 % (36.0-47.0); LYMPH # 1.2 10^3/uL (1.5-4.5); LYMPH % 11.9 % (24.0-44.0); MEAN CORPUSCULAR HEMOGLOBIN 31.8 pg (27.0-33.0); MEAN CORPUSCULAR HGB CONC 35.3 g/dl (32.0-36.5); MONO # 1.5 10^3/uL (0.0-0.8); NEUTROPHILS # 6.8 10^3/uL (1.8-7.7); PLATELET COUNT, AUTOMATED 179 10^3/uL (150-450); RED BLOOD COUNT 4.09 10^6/uL (4.00-5.40); WHITE BLOOD COUNT 9.9 10^3/uL (4.0-10.0)
[2018-09-05] MEDS: POTASSIUM CHLORIDE 10 MEQ SR TABLET PO SCH ×2 (08:33→14:30)
[2018-09-05] MEDS: NORCO, ANEXSIA 5/325MG TABLET (HYDROcodone/ACETAMINOPHEN) PO PRN ×3 (09:26→21:51)
[2018-09-05 10:00] VITALS: BP 136/82
[2018-09-05 14:00] VITALS: BP 133/81
--- NOTE | 2018-09-05 17:26 | IPN ---
DATE: 09/04/2018 HISTORY: The patient was admitted with lower abdominal pain and CT evidence for a contained perforation of a sigmoid diverticulum with some air in the pericolonic soft tissues. She has been maintained on intravenous (IV) antibiotics with Cipro and Flagyl. Her pain has gradually diminished. She has remained afebrile. She has tolerated clear liquids well. Vital signs: The patient has been afebrile over the past 24 hours with a pulse in the 70s and 80s and a good blood pressure. Room air oxygen saturations are normal. Intake and output: Yesterday she had 3300 in with only 100 mL recorded out, but there are several voids unrecorded. Her weight has remained approximately stable. PHYSICAL EXAMINATION: The patient is alert and pleasant today. She appears more comfortable. She is being visited by her daughter and her home health care case manager. Sclerae are anicteric. Skin is warm and dry. Heart exam shows a regular rhythm and the lungs are clear. The abdomen is soft with active bowel sounds. She has some very mild tenderness low in the left lower quadrant. LABORATORY STUDIES: Today her white blood cell count is 13 with a hemoglobin of 13, hematocrit of 37, and a platelet count of 157,000. Differential count shows 79% neutrophils, 7% lymphocytes, and 11% monocytes. Chemistry profile shows a sodium of 130, potassium 3.2, chloride 96, CO2 of 25, BUN of 8, creatinine 0.7, and a glucose of 106. IMPRESSION: The patient is doing well. Her white blood cell count has diminished slightly, and the differential is stable. Her electrolytes show that her potassium is slightly low, and we can replete this. PLAN: The patient will receive some additional a potassium. She will remain on clear liquids for at least another day. She is taking liquids well, so we will saline lock her IV. She will be allowed to take a shower and be encouraged to be up ambulatory.
[2018-09-05 18:00] VITALS: BP 136/72
[2018-09-05 22:00] VITALS: BP 132/77
[2018-09-06] MEDS: CIPROFLOXACIN 400 MG in APPROPRIATE DILUENT 1 EA IV SCH ×2 (01:00→13:20)
[2018-09-06] MEDS: HYDROMORPHONE HCL 0.5 MG/ 0.5 ML SYRINGE (J1170 PER 1) IV PRN ×4 (01:36→18:41)
[2018-09-06 02:00] VITALS: BP 113/65
[2018-09-06] MEDS: metroNIDAZOLE 500 MG in APPROPRIATE DILUENT 1 EA IV SCH ×4 (02:00→20:00)
[2018-09-06] MEDS: NORCO, ANEXSIA 5/325MG TABLET (HYDROcodone/ACETAMINOPHEN) PO PRN ×2 (03:14→07:50)
[2018-09-06 06:00] VITALS: BP 123/77
[2018-09-06 08:24] LABS: HEMATOCRIT 37.1 % (36.0-47.0); MEAN CORPUSCULAR HEMOGLOBIN 31.4 pg (27.0-33.0); MEAN CORPUSCULAR VOLUME 89.6 fl (80.0-96.0); PLATELET COUNT, AUTOMATED 180 10^3/uL (150-450); RED BLOOD COUNT 4.14 10^6/uL (4.00-5.40); WHITE BLOOD COUNT 11.6 10^3/uL (4.0-10.0)
[2018-09-06 08:50] LABS: BLOOD UREA NITROGEN 6 MG/DL (7-18); CALCIUM LEVEL 8.6 MG/DL (8.5-10.1); CARBON DIOXIDE LEVEL 24 MEQ/L (21-32); CHLORIDE LEVEL 98 MEQ/L (98-107); CREATININE FOR GFR 0.64 MG/DL (0.55-1.30); GLOMERULAR FILTRATION RATE > 60.0 (>51); GLUCOSE, FASTING 135 MG/DL (70-100); POTASSIUM SERUM 3.9 MEQ/L (3.5-5.1); SODIUM LEVEL 131 MEQ/L (136-145)
[2018-09-06 10:00] VITALS: BP 130/94
[2018-09-06 14:00] VITALS: BP 117/67
[2018-09-06 18:00] VITALS: BP 133/79
[2018-09-06] MEDS: ONDANSETRON 4MG/2ML VIAL (J2405) IV PRN (18:41)
--- NOTE | 2018-09-06 18:52 | IPN ---
DATE: 09/05/2018 HISTORY Patient has been undergoing antibiotic treatment for a contained perforation of a sigmoid diverticulum. She has been making good progress with gradually decreasing pain. Vital signs: The patient has been afebrile over the past 24 hours. Pulse is in the 60s to low 70s with a good blood pressure and normal room air oxygen saturations. Intake and output yesterday shows 2500 in with 1200 out recorded. PHYSICAL EXAMINATION The patient is alert and she moves readily without apparent discomfort. Skin: Is warm and dry. Heart exam shows a regular rate and rhythm. The lungs are clear. Abdomen is soft and without significant tenderness on her exam today. Laboratory studies this morning showed a white count of 10, hemoglobin of 13, hematocrit of 37 and platelet count of 179,000. Differential count shows 69% neutrophils, 12% lymphocytes and 15% monocytes. Chemistry profile was not repeated today. IMPRESSION The patient's tenderness is diminishing nicely and is pretty much resolved. Her white count is now down into the normal range with a nearly normal differential count. PLAN The patient will be advanced to full liquid diet today. She will be monitored in the hospital for at least another day. If she tolerates the full liquids we will advance to a low residue diet and convert her to oral antibiotics in anticipation of discharge soon. MICHAELA
--- NOTE | 2018-09-06 19:07 | REP ---
Clinical: Severe abdominal pain. Technique: Upright view of the chest with supine and upright views of the abdomen and pelvis. Findings: Free air below the diaphragm is consistent with pneumoperitoneum and bowel perforation. Bowel gas pattern is nonspecific. No organomegaly. No abnormal calcifications. Skeletal structures are intact. Impression: Free air below the diaphragm consistent with bowel perforation. Electronically Signed by Gee Fowler MD 09/06/2018 06:58 P
[2018-09-06] MEDS ORDERED: LIDOCAINE 2% INJ 100 MG/5 ML SDV (FOR ANES.) As Ordered ONE (20:10)
[2018-09-06] MEDS ORDERED: PROPOFOL 200 MG/20 ML VIAL As Ordered ONE (20:10)
[2018-09-06] MEDS ORDERED: dexameTHASONE 4 MG/ML 1ML VIAL (J1100) As Ordered ONE (20:10)
[2018-09-06] MEDS ORDERED: MIDAZOLAM INJ 2 MG/2 ML VIAL (J2250) As Ordered ONE (20:10)
[2018-09-06] MEDS ORDERED: ROCURONIUM BROMIDE 50 MG/5 ML VIAL As Ordered ONE ×2 (20:10→21:04)
[2018-09-06] MEDS ORDERED: fentaNYL 250 MCG/5 ML INJECTION (J3010) As Ordered ONE (20:10)
[2018-09-06] MEDS ORDERED: BUPIVACAINE/EPIN 0.25% 30 ML VIAL As Ordered ONE (20:11)
--- NOTE | 2018-09-06 20:22 | IPNPDOC ---
Text Note Date of Service The patient was seen on 09/06/18. NOTE I was called by her nurse this evening with concerns for acute increase in abd pains, and hypertension. I ordered an acute abdominal series which confirmed free air below the diaphragm. I scheduled her for emergency bowel resection, and I am here to see her in pre-op. I explained to her that with her increase in pain, and free air she has likely developed a free perforation of her sigmoid colon. At this point she is peritoneal, and we recommend proceeding with emergent surgery. I explained the risks and the benefits, and the need for colostomy creation. She is in agreement, and signed consent. Adán Etienne DO VS,Waylon, I+O VS, Waylon, I+O Laboratory Tests 09/06/18 08:03 Red Blood Count 4.14, Mean Corpuscular Volume 89.6, Mean Corpuscular Hemoglobin 31.4, Mean Corpuscular Hemoglobin Concent 35.0, Red Cell Distribution Width 12.8, Calcium Level 8.6 Vital Signs Date Time Temp Pulse Resp B/P (MAP) Pulse Ox O2 Delivery O2 Flow Rate FiO2 09/06/18 18:51 18 09/06/18 18:00 97.3 74 133/79 (97) 97 Room Air 09/02/18 06:23 3.0 I&O- Last 24 Hours up to 6 AM 09/06/18 06:00 Intake Total 1780 ml Output Total 1650 ml Balance 130 ml RAQUEL ETIENNE DO Sep 06, 2018 20:22
[2018-09-06] MEDS ORDERED: PHENYLephrine HCL 500 MCG/5 ML (100MCG/ML) SYRINGE (J2370) As Ordered ONE (20:53)
[2018-09-06] MEDS ORDERED: ONDANSETRON 4MG/2ML VIAL (J2405) As Ordered ONE (21:10)
[2018-09-06] MEDS ORDERED: GLYCOPYRROLATE INJ 0.2 MG/ML 2 ML VIAL As Ordered ONE ×2 (21:10→23:34)
[2018-09-06] MEDS ORDERED: NEOSTIGMINE 10 MG/10 ML VIAL (J2710) As Ordered ONE (21:10)
[2018-09-06] MEDS ORDERED: HYDROmorphone HCL 2 MG/ML 1ML VIAL (J1170) As Ordered ONE (21:11)
[2018-09-06] MEDS ORDERED: METOCLOPRAMIDE INJ 10MG/2ML VIAL (J2765) As Ordered ONE (21:13)
[2018-09-06] MEDS ORDERED: METHYLENE BLUE 0.5% (5MG/ML) 10 ML AMP (PROVAYBLUE)(Q9968 PER 1MG) As Ordered ONE (22:53)
[2018-09-07] VITALS (10 sets, daily range): BP systolic 136–162; BP diastolic 74–99
[2018-09-07] MEDS ORDERED: ALBUTEROL SULFATE 2.5 MG/0.5 ML INH NEB SOLN INH ONE
[2018-09-07] MEDS ORDERED: fentaNYL 100 MCG/2 ML INJECTION (J3010) IV PRN
[2018-09-07] MEDS ORDERED: LR 1,000 ML IV SCH
[2018-09-07] MEDS ORDERED: MORPHINE 10 MG/ML 1ML VIAL (J2270) IV PRN
[2018-09-07] MEDS ORDERED: ONDANSETRON 4MG/2ML VIAL (J2405) IV PRN ×2 (00:15)
[2018-09-07] MEDS: LR 1,000 ML IV SCH ×4 (01:11→20:59)
[2018-09-07] MEDS: CIPROFLOXACIN 400 MG in APPROPRIATE DILUENT 1 EA IV SCH ×2 (01:11→12:15)
[2018-09-07] MEDS: metroNIDAZOLE 500 MG in APPROPRIATE DILUENT 1 EA IV SCH ×4 (02:33→19:32)
[2018-09-07] MEDS: HYDROMORPHONE HCL 0.5 MG/ 0.5 ML SYRINGE (J1170 PER 1) IV PRN ×6 (02:34→22:57)
[2018-09-07] MEDS: HEPARIN SOD (PORCINE) 5000 UNITS/ML VIAL SC SCH ×3 (05:36→21:00)
--- NOTE | 2018-09-07 09:52 | IPN ---
DATE: 09/06/2018 HISTORY: The patient is now hospital day #5 from admission for a contained perforation of a sigmoid diverticulum. This was marked by air in the pericolonic tissues. She has generally been doing well. She seems a little less perky than she was yesterday. Vital signs: Shows that she has been afebrile over the past 24 hours. Pulse is in the 70s. Blood pressure is 113-136 systolically and her room air oxygen saturation is normal. Intake and output yesterday she had 2100 in with 1475 recorded out. She reported five bowel movements yesterday. PHYSICAL EXAMINATION: The patient was dozing when I entered the room, but aroused readily with voice. Skin: Is warm and dry. Heart exam shows a regular rate and rhythm. The abdomen remains somewhat obese. She has bowel sounds present. She does have some tenderness still in the left lower quadrant in the area medial to her anterior superior iliac spine in the suprapubic area. I would describe this as mild direct tenderness without rebound or guarding. Laboratory studies show a white count of 12, hemoglobin 13, hematocrit 37 and a platelet count of 180,000. Her chemistry profile showed a sodium of 131, potassium 3.9, chloride 98, CO2 of 24, BUN of 6, creatinine 0.6 and a glucose of 135. IMPRESSION: Patient is still having some not insignificant tenderness in the left lower quadrant and suprapubic area. She remains afebrile. Her white blood cell count is a little higher today than it was yesterday but not dramatically so. PLAN: We will keep her still on a full liquid diet with her IV antibiotics. I would like to see her tenderness more completely resolved before advancing her to a solid food. MICHAELA
[2018-09-07] MEDS: NORCO, ANEXSIA 5/325MG TABLET (HYDROcodone/ACETAMINOPHEN) PO PRN ×3 (12:16→21:05)
--- NOTE | 2018-09-07 13:22 | IPNPDOC ---
Text Note Date of Service The patient was seen on 09/07/18. NOTE No acute events overnight. Her abd pain is improved. Denies nausea, emesis, fevers, or pains. No ostomy output yet. VSSAF UOP - 1450 drain - 70 NAD abd - soft, TTP appropriate, dressings c/d/i, ostomy is pink and patent with sweat in the bag labs - below A) 53y/o female s/p lap sigmoid resection, and end colostomy for perforated diverticulitis P) ice and water dc canales abx ambulate monitor drain output will advance diet once there is output in the ostomy Adán Etienne DO VS,Fishdarlinee, I+O VS, Fishbone, I+O Vital Signs Date Time Temp Pulse Resp B/P (MAP) Pulse Ox O2 Delivery O2 Flow Rate FiO2 09/07/18 12:16 16 09/07/18 10:00 99.8 88 136/75 (95) 94 Room Air 09/07/18 02:15 1.0 I&O- Last 24 Hours up to 6 AM 09/07/18 06:00 Intake Total 3870 ml Output Total 1150 ml Balance 2720 ml RAQUEL ETIENNE DO Sep 07, 2018 13:22
[2018-09-08] VITALS (7 sets, daily range): BP systolic 148–180; BP diastolic 84–102
[2018-09-08] MEDS: CIPROFLOXACIN 400 MG in APPROPRIATE DILUENT 1 EA IV SCH ×2 (01:15→13:55)
[2018-09-08] MEDS: NORCO, ANEXSIA 5/325MG TABLET (HYDROcodone/ACETAMINOPHEN) PO PRN ×2 (01:43→15:50)
[2018-09-08] MEDS: metroNIDAZOLE 500 MG in APPROPRIATE DILUENT 1 EA IV SCH ×4 (02:57→20:24)
[2018-09-08] MEDS: HYDROMORPHONE HCL 0.5 MG/ 0.5 ML SYRINGE (J1170 PER 1) IV PRN ×2 (02:57→05:59)
[2018-09-08] MEDS: HEPARIN SOD (PORCINE) 5000 UNITS/ML VIAL SC SCH ×3 (05:49→22:23)
[2018-09-08 05:54] LABS: HEMATOCRIT 37.6 % (36.0-47.0); HEMOGLOBIN 12.7 g/dl (12.0-15.5); MEAN CORPUSCULAR HEMOGLOBIN 31.5 pg (27.0-33.0); MEAN CORPUSCULAR HGB CONC 33.8 g/dl (32.0-36.5); MEAN CORPUSCULAR VOLUME 93.3 fl (80.0-96.0); PLATELET COUNT, AUTOMATED 216 10^3/uL (150-450); RED BLOOD COUNT 4.03 10^6/uL (4.00-5.40); WHITE BLOOD COUNT 14.4 10^3/uL (4.0-10.0)
[2018-09-08 06:10] LABS: BLOOD UREA NITROGEN 7 MG/DL (7-18); CALCIUM LEVEL 8.5 MG/DL (8.5-10.1); CARBON DIOXIDE LEVEL 30 MEQ/L (21-32); CHLORIDE LEVEL 97 MEQ/L (98-107); CREATININE FOR GFR 0.68 MG/DL (0.55-1.30); GLOMERULAR FILTRATION RATE > 60.0 (>51); GLUCOSE, FASTING 118 MG/DL (70-100); POTASSIUM SERUM 4.7 MEQ/L (3.5-5.1); SODIUM LEVEL 132 MEQ/L (136-145)
[2018-09-08] MEDS: LR 1,000 ML IV SCH ×3 (06:46→20:25)
[2018-09-08] MEDS: ONDANSETRON 4MG/2ML VIAL (J2405) IV PRN (10:42)
--- NOTE | 2018-09-08 11:18 | IPNPDOC ---
Text Note Date of Service The patient was seen on 09/08/18. NOTE No acute events overnight. Her abd pain is improved. Denies emesis, fevers, or pains. No ostomy output yet. She is starting to get a little distended, and have some nausea. VSSAF UOP - 1235 drain - 330 NAD abd - soft, slightly distended,TTP appropriate, dressings c/d/i, ostomy is pink and patent with sweat in the bag labs - below A) 53y/o female s/p lap sigmoid resection, and end colostomy for perforated diverticulitis P) ice and water abx ambulate monitor drain output will place NGT if she starts to develop some emesis will advance diet once there is output in the ostomy Adán Etienne DO VS,Waylon, I+O VS, Waylon, I+O Laboratory Tests 09/08/18 05:01 Red Blood Count 4.03, Mean Corpuscular Volume 93.3, Mean Corpuscular Hemoglobin 31.5, Mean Corpuscular Hemoglobin Concent 33.8, Red Cell Distribution Width 13. 0, Calcium Level 8.5 Vital Signs Date Time Temp Pulse Resp B/P (MAP) Pulse Ox O2 Delivery O2 Flow Rate FiO2 09/08/18 10:00 99.3 87 17 94 Room Air 09/07/18 02:15 1.0 I&O- Last 24 Hours up to 6 AM 09/08/18 06:00 Intake Total 3325 ml Output Total 1635 ml Balance 1690 ml RAQUEL ETIENNE DO Sep 08, 2018 11:18
[2018-09-08] MEDS ORDERED: LISINOPRIL 10 MG TAB PO ONE (15:30)
[2018-09-08] MEDS ORDERED: LISINOPRIL 10 MG TAB PO SCH (21:00)
[2018-09-08] MEDS: KETOROLAC 30 MG/ML VIAL (J1885) IV PRN (22:24)
[2018-09-09] MEDS: CIPROFLOXACIN 400 MG in APPROPRIATE DILUENT 1 EA IV SCH ×2 (01:15→13:15)
[2018-09-09 02:00] VITALS: BP 175/87
[2018-09-09] MEDS: metroNIDAZOLE 500 MG in APPROPRIATE DILUENT 1 EA IV SCH ×4 (02:27→20:58)
[2018-09-09] MEDS: KETOROLAC 30 MG/ML VIAL (J1885) IV PRN ×3 (04:29→21:00)
[2018-09-09 05:49] LABS: HEMATOCRIT 36.3 % (36.0-47.0); HEMOGLOBIN 12.5 g/dl (12.0-15.5); MEAN CORPUSCULAR HEMOGLOBIN 31.3 pg (27.0-33.0); MEAN CORPUSCULAR HGB CONC 34.4 g/dl (32.0-36.5); PLATELET COUNT, AUTOMATED 239 10^3/uL (150-450); RED BLOOD COUNT 3.99 10^6/uL (4.00-5.40); WHITE BLOOD COUNT 12.4 10^3/uL (4.0-10.0)
[2018-09-09 06:00] VITALS: BP 160/86
[2018-09-09 06:22] LABS: BLOOD UREA NITROGEN 9 MG/DL (7-18); CALCIUM LEVEL 8.5 MG/DL (8.5-10.1); CARBON DIOXIDE LEVEL 30 MEQ/L (21-32); CHLORIDE LEVEL 97 MEQ/L (98-107); CREATININE FOR GFR 0.61 MG/DL (0.55-1.30); GLOMERULAR FILTRATION RATE > 60.0 (>51); GLUCOSE, FASTING 99 MG/DL (70-100); POTASSIUM SERUM 3.4 MEQ/L (3.5-5.1); SODIUM LEVEL 134 MEQ/L (136-145)
[2018-09-09] MEDS: HEPARIN SOD (PORCINE) 5000 UNITS/ML VIAL SC SCH ×3 (06:38→20:58)
[2018-09-09 10:00] VITALS: BP 140/87
--- NOTE | 2018-09-09 10:04 | IPNPDOC ---
Text Note Date of Service The patient was seen on 09/09/18. NOTE No acute events overnight. Her abd pain is improved. Denies emesis, fevers, or pains since placement of the NGT yesterday. Flatus in the bag, but no stool yet. VSSAF UOP - 2325 drain - 70 NG - 900 brown NAD abd - soft, slightly distended,TTP appropriate, dressings c/d/i, ostomy is pink and patent with sweat in the bag, and some air labs - below A) 53y/o female s/p lap sigmoid resection, and end colostomy for perforated diverticulitis with expected post-op ileus P) ice and water abx NGT ambulate monitor drain output will advance diet once there is output in the ostomy Adán Etienne DO VS,Waylon, I+O VSWaylon, I+O Laboratory Tests 09/09/18 05:18 Red Blood Count 3.99 L, Mean Corpuscular Volume 91.0, Mean Corpuscular Hemoglobin 31.3, Mean Corpuscular Hemoglobin Concent 34.4, Red Cell Distribution Width 12.9, Calcium Level 8.5 Vital Signs Date Time Temp Pulse Resp B/P (MAP) Pulse Ox O2 Delivery O2 Flow Rate FiO2 09/09/18 06:00 97.7 73 17 160/86 (110) 95 Room Air 09/07/18 02:15 1.0 I&O- Last 24 Hours up to 6 AM 09/09/18 06:00 Intake Total 3285 ml Output Total 3850 ml Balance -565 ml RAQUEL ETIENNE DO Sep 09, 2018 10:04
[2018-09-09 14:00] VITALS: BP 153/87
[2018-09-09] MEDS: LR 1,000 ML IV SCH (15:26)
[2018-09-09 18:00] VITALS: BP 135/88
[2018-09-09] MEDS: LISINOPRIL 10 MG TAB PO SCH (20:57)
[2018-09-09 22:00] VITALS: BP_SYST 146; BP_SYST 152; BP_DIAS 64; BP_DIAS 78
[2018-09-10] MEDS: LR 1,000 ML IV SCH ×2 (00:13→00:44)
[2018-09-10] MEDS: CIPROFLOXACIN 400 MG in APPROPRIATE DILUENT 1 EA IV SCH ×2 (00:44→12:32)
[2018-09-10 02:00] VITALS: BP 160/74
[2018-09-10] MEDS: metroNIDAZOLE 500 MG in APPROPRIATE DILUENT 1 EA IV SCH ×4 (02:37→19:44)
[2018-09-10] MEDS: HEPARIN SOD (PORCINE) 5000 UNITS/ML VIAL SC SCH ×3 (05:00→21:24)
[2018-09-10] MEDS: KETOROLAC 30 MG/ML VIAL (J1885) IV PRN ×3 (05:02→21:24)
[2018-09-10 06:00] VITALS: BP 147/78
[2018-09-10 06:19] LABS: HEMATOCRIT 37.9 % (36.0-47.0); HEMOGLOBIN 12.9 g/dl (12.0-15.5); MEAN CORPUSCULAR HEMOGLOBIN 31.6 pg (27.0-33.0); MEAN CORPUSCULAR VOLUME 92.9 fl (80.0-96.0); PLATELET COUNT, AUTOMATED 268 10^3/uL (150-450); RED BLOOD COUNT 4.08 10^6/uL (4.00-5.40); WHITE BLOOD COUNT 11.5 10^3/uL (4.0-10.0)
[2018-09-10 06:59] LABS: BLOOD UREA NITROGEN 11 MG/DL (7-18); CALCIUM LEVEL 8.3 MG/DL (8.5-10.1); CARBON DIOXIDE LEVEL 37 MEQ/L (21-32); CHLORIDE LEVEL 95 MEQ/L (98-107); CREATININE FOR GFR 0.69 MG/DL (0.55-1.30); GLOMERULAR FILTRATION RATE > 60.0 (>51); GLUCOSE, FASTING 115 MG/DL (70-100); POTASSIUM SERUM 2.7 MEQ/L (3.5-5.1); SODIUM LEVEL 139 MEQ/L (136-145)
[2018-09-10] MEDS ORDERED: POTASSIUM CHLORIDE 10 MEQ SR TABLET PO ONE (08:00)
--- NOTE | 2018-09-10 09:53 | IPNPDOC ---
Text Note Date of Service The patient was seen on 09/10/18. NOTE No acute events overnight. Her abd pain is improved. Denies emesis, fevers, or pains. She has had lots of stool in the bag. VSSAF UOP - 1000 drain - 30 NG - 2700 brown stool - 300 NAD abd - soft, nd, TTP appropriate, dressings c/d/i, ostomy is pink and patent with stool in the bag labs - below A) 53y/o female s/p lap sigmoid resection, and end colostomy for perforated diverticulitis with expected post-op ileus that is resolving P) clq diet abx clamp NGT ambulate monitor drain output dc ivf dc katelynn drain dc NGT if tolerating clq diet till 6pm tonight. Adán Etienne DO VS,Waylon, I+O VS, Waylon, I+O Laboratory Tests 09/10/18 05:53 Red Blood Count 4.08, Mean Corpuscular Volume 92.9, Mean Corpuscular Hemoglobin 31.6, Mean Corpuscular Hemoglobin Concent 34.0, Red Cell Distribution Width 13.2, Calcium Level 8.3 L Vital Signs Date Time Temp Pulse Resp B/P (MAP) Pulse Ox O2 Delivery O2 Flow Rate FiO2 09/10/18 06:00 97.2 74 18 147/78 (101) 94 Room Air 09/07/18 02:15 1.0 I&O- Last 24 Hours up to 6 AM 09/10/18 06:00 Intake Total 3735 ml Output Total 5425 ml Balance -1690 ml RAQUEL ETIENNE DO Sep 10, 2018 09:53
[2018-09-10 10:00] VITALS: BP 178/91
--- NOTE | 2018-09-10 11:40 | IPN ---
DATE: 09/09/2018 HISTORY: The patient was in the hospital for treatment of a contained perforation of the sigmoid on the late afternoon and evening of the . She developed a free perforation which was marked by increased abdominal pain and an abdominal x-ray showed free air. She was taken to the operating room by Dr. Etienne. She underwent a partial colectomy and colostomy. She has had issues with ileus postop which seems to be improving as her ostomy output improves. PHYSICAL EXAMINATION: The patient is alert and oriented. She appears fairly comfortable at this point other than complaints about the NG tube. Heart exam shows a regular rhythm. The abdomen is generally flat. She does have some bowel sounds present. She has a healthy ostomy in the left side of the abdomen with a small amount of liquid stool in the bag. IMPRESSION: The patient appears to be doing well now postop day #3 from a colectomy and colostomy for a perforated diverticulum. PLAN: At this point, Dr. Etienne will continue management of this patient. She appears to be doing well at this point. MICHAELA
[2018-09-10 14:00] VITALS: BP 135/81
[2018-09-10] MEDS: LISINOPRIL 10 MG TAB PO SCH (21:25)
[2018-09-10] MEDS: POTASSIUM CHLORIDE 10 MEQ SR TABLET PO SCH (21:25)
[2018-09-10 22:00] VITALS: BP 142/77
[2018-09-11] MEDS: CIPROFLOXACIN 400 MG in APPROPRIATE DILUENT 1 EA IV SCH ×2 (01:26→12:17)
[2018-09-11 02:00] VITALS: BP 164/82
[2018-09-11] MEDS: metroNIDAZOLE 500 MG in APPROPRIATE DILUENT 1 EA IV SCH ×4 (02:58→20:18)
[2018-09-11] MEDS: NORCO, ANEXSIA 5/325MG TABLET (HYDROcodone/ACETAMINOPHEN) PO PRN (02:58)
[2018-09-11 05:51] LABS: HEMATOCRIT 34.8 % (36.0-47.0); HEMOGLOBIN 11.6 g/dl (12.0-15.5); MEAN CORPUSCULAR HEMOGLOBIN 30.7 pg (27.0-33.0); MEAN CORPUSCULAR HGB CONC 33.3 g/dl (32.0-36.5); MEAN CORPUSCULAR VOLUME 92.1 fl (80.0-96.0); PLATELET COUNT, AUTOMATED 256 10^3/uL (150-450); RED BLOOD COUNT 3.78 10^6/uL (4.00-5.40); WHITE BLOOD COUNT 13.2 10^3/uL (4.0-10.0)
[2018-09-11 06:00] VITALS: BP 146/77
[2018-09-11] MEDS: HEPARIN SOD (PORCINE) 5000 UNITS/ML VIAL SC SCH ×3 (06:12→21:46)
[2018-09-11 06:21] LABS: BLOOD UREA NITROGEN 10 MG/DL (7-18); CALCIUM LEVEL 8.2 MG/DL (8.5-10.1); CARBON DIOXIDE LEVEL 31 MEQ/L (21-32); CHLORIDE LEVEL 97 MEQ/L (98-107); CREATININE FOR GFR 0.63 MG/DL (0.55-1.30); GLOMERULAR FILTRATION RATE > 60.0 (>51); GLUCOSE, FASTING 110 MG/DL (70-100); SODIUM LEVEL 136 MEQ/L (136-145)
[2018-09-11] MEDS: POTASSIUM CHLORIDE 10 MEQ SR TABLET PO SCH ×2 (08:22→20:17)
[2018-09-11] MEDS: KETOROLAC 30 MG/ML VIAL (J1885) IV PRN ×2 (08:46→15:03)
--- NOTE | 2018-09-11 10:04 | IPNPDOC ---
Text Note Date of Service The patient was seen on 09/11/18. NOTE No acute events overnight. Her abd pain is improved. Denies emesis, fevers, or pains. She has had lots of stool in the bag, and is tolerating flq diet with the NGT out. VSSAF NAD abd - soft, nd, TTP appropriate, dressings c/d/i, ostomy is pink and patent with stool in the bag labs - below A) 53y/o female s/p lap sigmoid resection, and end colostomy for perforated diverticulitis with expected post-op ileus that is resolving P) reg diet abx ambulate ostomy teaching set up for home care and ostomy supplies plan on dc home likely sunday Adán Etienne DO VS,Waylon, I+O VS, Waylon, I+O Laboratory Tests 09/11/18 05:21 Red Blood Count 3.78 L, Mean Corpuscular Volume 92.1, Mean Corpuscular Hemoglobin 30.7, Mean Corpuscular Hemoglobin Concent 33.3, Red Cell Distribution Width 13.2, Calcium Level 8.2 L Vital Signs Date Time Temp Pulse Resp B/P (MAP) Pulse Ox O2 Delivery O2 Flow Rate FiO2 09/11/18 06:00 97.5 73 18 146/77 (100) 98 Room Air 09/07/18 02:15 1.0 I&O- Last 24 Hours up to 6 AM 09/11/18 05:59 Intake Total 2145 ml Output Total 1085 ml Balance 1060 ml RAQUEL ETIENNE DO Sep 11, 2018 10:04
--- NOTE | 2018-09-11 11:23 | RO ---
DATE OF PROCEDURE: 09/06/2018 PREOPERATIVE DIAGNOSIS: Complicated diverticulitis with sigmoid perforation and generalized peritonitis. POSTOPERATIVE DIAGNOSIS: Complicated diverticulitis with sigmoid perforation and generalized peritonitis. PROCEDURE: Laparoscopic lysis of adhesions, abdominal washout, sigmoid resection, and creation of end colostomy. SURGEON: Dr. Etienne ELECTROTYPE FINISHER: Dr. Mcgraw, who assisted with visualization and retraction during procedure and creation of the ostomy. ANESTHESIA: General. ESTIMATED BLOOD LOSS (EBL): 50. COMPLICATIONS: None. INDICATIONS FOR PROCEDURE: Patient is a 53-year-old female patient of Dr. Schulte'nallely who has been in the hospital since 09/02/2018 with complicated diverticulitis with a contained perforation. She has not really been progressing that well over the past week. However, she was started to be advanced on a diet and had sudden increase in pain today, 09/06/2018, that prompted the nurse to give me a call. I ordered acute abdominal series that confirmed that there was free air below the diaphragm. Therefore, I set her up for emergent surgery. Recommendation is to proceed with laparoscopic sigmoid resection and colostomy creation. Risks and benefits of procedure not limited to but including bleeding, infection, hernia formation, damage to surrounding structure, need for further surgery were discussed in detail with the patient. Informed was obtained, and procedure was planned. DESCRIPTION OF PROCEDURE: Patient brought back to operating room #2. After sufficient sedation, the abdomen was sterilely prepped and draped and a Alberto catheter was placed. Next, time-out was done to confirm proper patient, proper procedure. Following that, 5 mm incision made in left upper quadrant. A Veress needle was inserted, and the abdomen was insufflated to 15 mmHg. Next, the Veress needle was removed. A 5 mm Optiview port was used to gain access to the abdomen. Once the abdomen was entered, there were multiple adhesions along the midline of the abdomen from the omentum to the abdominal wall. There were also extensive omental adhesions to the right lower quadrant as well as small bowel adhesions to the right lower quadrant abdominal wall. I was able to get over to the right side of the abdomen with the camera, place two more ports on the right abdomen, one on the right upper and right lower quadrant. From there, I was able to take down all the adhesions along the midline using the Enseal and the adhesions in the right lower quadrant with the Enseal. Once that was completed, I was able to carefully dissect the omentum away from the right lower quadrant, free it up from the loops of bowel, and get it up into the upper abdomen. After doing so, there were multiple loops of small bowel in the right lower quadrant that were edematous and inflamed and adhered to the sigmoid colon, the bladder, and the uterus. Loops of small bowel were carefully retracted out of the way one at a time, revealing the sigmoid colon. The sigmoid colon was then carefully dissected free from the bladder and the uterus, revealing a large pocket of purulent fluid as well as the perforation. Once this was completed, the sigmoid was retracted medially and lateral peritoneal reflections were taken down using the Enseal. Once that was completed, I was able to pull it up proximal enough to get distal to the inflamed portion. I was then able to dissect through the mesentery of the distal sigmoid at the rectosigmoid junction and circumferentially get around the bowel, then replace the right lower quadrant 5 mm port with a 12 mm port, and use the [place] stapler with a green load to transect at the rectosigmoid junction. Once that was completed, I was able to dissect through the mesentery proximally from the sigmoid up to the descending colon. Once I had enough of the colon freed up to pull it out through the left abdominal wall, I stopped resecting. Took a #2-0 Prolene suture and tied it over the distal rectal stump to use as a marker for when I return in 3-6 months to identify the rectal stump. Once this was all completed, the anterior abdominal wall on the left lower side of the colostomy location was identified. A #10 blade scalpel was used to create a circular skin incision. This incision was carried down to level of fascia using the electrocautery. The fascia was opened transversely. Muscles were retracted medially and laterally, and the peritoneum was entered. The peritoneum was entered large enough area to be able to remove the specimen. Once the specimen was removed, an area proximal to the perforation where the bowel appeared healthy was identified. The bowel was then transected again at this point. The fascia was then closed surrounding the ostomy using interrupted #1 Vicryl sutures. Once it was brought around the ostomy, it was then matured using interrupted #2-0 Vicryl sutures. Once this was completed, the abdomen was examined one last time. There was a lot of edematous fluid coming out around the ostomy with concerns for possible ureter injury on the left. She was given some methylene blue. We waited sufficient time to see methylene blue filling up the Alberto catheter. There were no signs of any increased fluid inside the abdomen or any blue fluid inside the abdomen. After this was done, a #19-Georgian Domenico drain was placed along the left side of the abdomen, down into the pelvis, brought out through the 12 mm port site on the right side of the abdomen. Abdomen was then desufflated. Skin incisions were closed with brady. The abdomen was cleaned and dried. Ostomy appliance was placed. Patient was awakened from anesthesia and sent to postanesthesia care unit (PACU) in stable condition. Edited: esha 09/14/2018 1412
[2018-09-11 12:00] VITALS: BP 130/79
[2018-09-11] MEDS: ONDANSETRON 4MG/2ML VIAL (J2405) IV PRN (13:48)
[2018-09-11 14:00] VITALS: BP 146/82
[2018-09-11 18:00] VITALS: BP 142/74
[2018-09-11] MEDS: LISINOPRIL 10 MG TAB PO SCH (20:17)
[2018-09-11 22:00] VITALS: BP 135/75
[2018-09-12] VITALS (7 sets, daily range): BP systolic 132–150; BP diastolic 67–87
[2018-09-12] MEDS: KETOROLAC 30 MG/ML VIAL (J1885) IV PRN ×3 (00:51→18:49)
[2018-09-12] MEDS: CIPROFLOXACIN 400 MG in APPROPRIATE DILUENT 1 EA IV SCH (00:52)
[2018-09-12] MEDS: metroNIDAZOLE 500 MG in APPROPRIATE DILUENT 1 EA IV SCH ×2 (02:01→08:19)
[2018-09-12 05:28] LABS: HEMATOCRIT 31.5 % (36.0-47.0); HEMOGLOBIN 10.6 g/dl (12.0-15.5); MEAN CORPUSCULAR HEMOGLOBIN 31.3 pg (27.0-33.0); MEAN CORPUSCULAR HGB CONC 33.7 g/dl (32.0-36.5); MEAN CORPUSCULAR VOLUME 92.9 fl (80.0-96.0); PLATELET COUNT, AUTOMATED 237 10^3/uL (150-450); RED BLOOD COUNT 3.39 10^6/uL (4.00-5.40); WHITE BLOOD COUNT 11.2 10^3/uL (4.0-10.0)
[2018-09-12] MEDS: HEPARIN SOD (PORCINE) 5000 UNITS/ML VIAL SC SCH ×3 (05:39→20:55)
[2018-09-12 05:47] LABS: BLOOD UREA NITROGEN 12 MG/DL (7-18); CARBON DIOXIDE LEVEL 28 MEQ/L (21-32); CHLORIDE LEVEL 102 MEQ/L (98-107); CREATININE FOR GFR 0.61 MG/DL (0.55-1.30); GLOMERULAR FILTRATION RATE > 60.0 (>51); GLUCOSE, FASTING 97 MG/DL (70-100); POTASSIUM SERUM 3.8 MEQ/L (3.5-5.1); SODIUM LEVEL 135 MEQ/L (136-145)
[2018-09-12] MEDS: POTASSIUM CHLORIDE 10 MEQ SR TABLET PO SCH (08:20)
--- NOTE | 2018-09-12 09:30 | IPNPDOC ---
Text Note Date of Service The patient was seen on 09/12/18. NOTE No acute events overnight. Her abd pain is improved. Denies emesis, fevers, or pains. Tolerating reg diet. Nurses report that she is having a hard time dealing with the ostomy, and is trying to find someone to help her change it at home. VSSAF NAD abd - soft, nd, TTP appropriate, dressings c/d/i, ostomy is pink and patent with stool in the bag labs - below A) 53y/o female s/p lap sigmoid resection, and end colostomy for perforated diverticulitis with expected post-op ileus that is resolving P) reg diet abx ambulate ostomy teaching set up for home care and ostomy supplies plan on dc home likely tomorrow Adán Etienne DO VS,Waylon, I+O VS, Waylon, I+O Laboratory Tests 09/12/18 05:12 Red Blood Count 3.39 L, Mean Corpuscular Volume 92.9, Mean Corpuscular Hemoglobin 31.3, Mean Corpuscular Hemoglobin Concent 33.7, Red Cell Distribution Width 13.2, Calcium Level 8.0 L Vital Signs Date Time Temp Pulse Resp B/P (MAP) Pulse Ox O2 Delivery O2 Flow Rate FiO2 09/12/18 06:00 97.3 78 19 141/87 (105) 97 Room Air 09/07/18 02:15 1.0 I&O- Last 24 Hours up to 6 AM 09/12/18 06:00 Intake Total 1205 ml Output Total 1050 ml Balance 155 ml RAQUEL ETIENNE DO Sep 12, 2018 09:30
[2018-09-12] MEDS: metroNIDAZOLE (FLAGYL) 500 MG TAB PO SCH ×2 (13:23→20:54)
[2018-09-12] MEDS: CIPROFLOXACIN 500 MG TAB PO SCH (13:23)
[2018-09-12] MEDS: LISINOPRIL 10 MG TAB PO SCH (20:59)
[2018-09-13] MEDS: CIPROFLOXACIN 500 MG TAB PO SCH (00:55)
[2018-09-13] MEDS: metroNIDAZOLE (FLAGYL) 500 MG TAB PO SCH ×2 (01:46→08:13)
[2018-09-13] MEDS: KETOROLAC 30 MG/ML VIAL (J1885) IV PRN (01:47)
[2018-09-13 02:00] VITALS: BP 146/88
[2018-09-13 05:58] LABS: HEMATOCRIT 32.5 % (36.0-47.0); HEMOGLOBIN 10.7 g/dl (12.0-15.5); MEAN CORPUSCULAR HGB CONC 32.9 g/dl (32.0-36.5); MEAN CORPUSCULAR VOLUME 94.2 fl (80.0-96.0); PLATELET COUNT, AUTOMATED 248 10^3/uL (150-450); RED BLOOD COUNT 3.45 10^6/uL (4.00-5.40)
[2018-09-13 06:00] VITALS: BP 150/89
[2018-09-13] MEDS: HEPARIN SOD (PORCINE) 5000 UNITS/ML VIAL SC SCH (06:18)
[2018-09-13 06:24] LABS: BLOOD UREA NITROGEN 13 MG/DL (7-18); CARBON DIOXIDE LEVEL 27 MEQ/L (21-32); CHLORIDE LEVEL 102 MEQ/L (98-107); CREATININE FOR GFR 0.64 MG/DL (0.55-1.30); GLOMERULAR FILTRATION RATE > 60.0 (>51); GLUCOSE, FASTING 97 MG/DL (70-100); POTASSIUM SERUM 4.2 MEQ/L (3.5-5.1); SODIUM LEVEL 137 MEQ/L (136-145)
[2018-09-13] MEDS ORDERED: POTASSIUM CHLORIDE 10 MEQ SR TABLET PO SCH (09:00)
[2018-09-13] MEDS ORDERED: NORCOTAB PO (10:35)
--- NOTE | 2018-09-13 14:09 | DSES ---
DATE OF ADMISSION: 09/02/2018 DATE OF DISCHARGE: 09/13/2018 ADMISSION DIAGNOSIS: Perforated diverticulitis. DISCHARGE DIAGNOSIS: Perforated diverticulitis. HOSPITAL COURSE: Patient is 53-year-old female who was admitted to Dr. Schulte on the . She came in with complaints of abdominal pain. She was found have a contained sigmoid diverticulum perforation. She was treated initially with IV fluids and antibiotics. Her white count took awhile to go down but her pain and labs slowly improved over the following week. However, when I took over for Dr. Schulte on September 06, she started to have some sudden increase in her abdominal pain. I had x-ray obtained in the evening that showed free perforation and she was brought to the operating room that evening for an urgent diagnostic laparoscopy with laparoscopic sigmoid resection and colostomy creation. Postoperatively from that she has been doing well. She did have postop ileus for a couple of days as expected from all the severe inflammation inside of her abdomen but that improved quickly with NG tube decompression. By postop day #3 the NG tube was removed, she was tolerating diet. The ostomy started to have improving output. As of yesterday 09/12/2018 she was on a regular diet, tolerating that without any problems having good ostomy output. The only holdup on her discharge was getting her comfortable taking care of her ostomy at home. She has been working with the ostomy nurse for the past 3 days now. She now feels comfortable with it and is emptying the bag on her own. Plan is to discharge home today. We will send her home with ostomy supplies and home custodial a couple times a week to help her until she is fully comfortable taking care of it. Other than that, she has brady in place. She will followup with me in the office in a little over a week to have the brady removed and then we will plan for elective colostomy reversal in about 3 months from now.
== END 2018-09-13 11:12 | disposition home health service (06) | DRG 221 ==
LOC: M ED 21:09 → M ED INP 09-02 01:24 → M MSPAV 09-02 03:06
PROVIDERS: ADMIT Surgery; ATTEND Surgery
PROC: 0D1M4Z4 Bypass Descending Colon to Cutaneous, Percutaneous Endoscopic Approach (ICD-10-PCS; 2018-09-06)
PROC: 0DBN4ZZ Excision of Sigmoid Colon, Percutaneous Endoscopic Approach (ICD-10-PCS; principal; 2018-09-06 19:23)
DX: K57.20 Diverticulitis of large intestine with perforation and abscess without bleeding (principal); K56.7 Ileus, unspecified; I10 Essential (primary) hypertension; J44.9 Chronic obstructive pulmonary disease, unspecified; K21.9 Gastro-esophageal reflux disease without esophagitis; J45.909 Unspecified asthma, uncomplicated; F17.210 Nicotine dependence, cigarettes, uncomplicated; F41.9 Anxiety disorder, unspecified; F32.9 Major depressive disorder, single episode, unspecified; F43.10 Post-traumatic stress disorder, unspecified

== ENCOUNTER 2018-11-01 09:53 | Emergency (ER) | payer OTHER ==
[~2018-11-01] VITALS: Ht 157.5 cm; Wt 81.3 kg
[~2018-11-01 09:53] MED LIST changes: +ACET-683 PO; -AMLO5TAB4 PO; +AMLO5TAB6 PO; +KLON0.5T PO; +LISI10TA4 PO; +METH1TAB40 PO; +NORCOTAB PO
[2018-11-01] MEDS ORDERED: methylPREDNISolone INJ 125 MG/2 ML VIAL (J2930) IM ONE (10:45)
[2018-11-01] MEDS: IPRATROPIUM 0.5MG/ALBUTEROL 2.5MG INH SOL UD 3ML (DUONEB)(J7620) NEB PRN ×2 (11:04→11:53)
[2018-11-01 11:08] LABS: INFLUENZA A AMPLIFICATION NEGATIVE (NEGATIVE); INFLUENZA B AMPLIFICATION NEGATIVE (NEGATIVE)
--- NOTE | 2018-11-01 11:18 | REP ---
Chest two views HISTORY: Cough Comparison: 08/06/2017 The lungs are clear. The heart is normal in size. The pulmonary vasculature is normal in appearance. The bony structure is intact. IMPRESSION: No acute disease. Electronically Signed by Román Dumont MD 11/01/2018 11:09 A
[2018-11-01] MEDS ORDERED: PRED20TA PO (11:51)
[2018-11-01 12:04] VITALS: BP 147/81
--- NOTE | 2018-11-01 17:38 | ECGEPIP ---
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
== END 2018-11-01 12:13 | disposition home or self-care (01) ==
LOC: M ED 09:53
DX: J44.9 Chronic obstructive pulmonary disease, unspecified (principal); J06.9 Acute upper respiratory infection, unspecified; I10 Essential (primary) hypertension; K21.9 Gastro-esophageal reflux disease without esophagitis; R51 Headache; M54.9 Dorsalgia, unspecified; D64.9 Anemia, unspecified; F41.9 Anxiety disorder, unspecified; F43.10 Post-traumatic stress disorder, unspecified; F32.9 Major depressive disorder, single episode, unspecified; K57.90 Diverticulosis of intestine, part unspecified, without perforation or abscess without bleeding; F17.200 Nicotine dependence, unspecified, uncomplicated; Z88.0 Allergy status to penicillin; Z91.030 Bee allergy status; Z79.899 Other long term (current) drug therapy
CPT/HCPCS: 71046; 87502; 93005; 94640; 96372; 99284; J2930

== ENCOUNTER → 2018-12-20 | Outpatient (REF) | payer OTHER ==
[~2018-12-20] MED LIST changes: +ACET-716 PO; -ACET30TAB PO; +HYDR-3715 PO; -NORCOTAB PO; +PRED20TA PO
[2018-12-20 13:42] LABS: BASO # 0.1 10^3/uL (0.0-0.2); BASO % 1.5 % (0.0-1.0); EOS # 0.3 10^3/uL (0.0-0.50); EOS % 4.6 % (0.0-3.0); HEMATOCRIT 42.7 % (36.0-47.0); HEMOGLOBIN 14.8 g/dl (12.0-15.5); LYMPH # 2.1 10^3/uL (1.5-4.5); LYMPH % 32.3 % (24.0-44.0); MEAN CORPUSCULAR HEMOGLOBIN 30.6 pg (27.0-33.0); MEAN CORPUSCULAR HGB CONC 34.7 g/dl (32.0-36.5); MEAN CORPUSCULAR VOLUME 88.2 fl (80.0-96.0); MONO # 0.9 10^3/uL (0.0-0.8); MONO % 13.4 % (0.0-5.0); NEUTROPHILS # 3.2 10^3/uL (1.8-7.7); NEUTROPHILS % 47.9 % (36.0-66.0); PLATELET COUNT, AUTOMATED 196 10^3/uL (150-450); RED BLOOD COUNT 4.84 10^6/uL (4.00-5.40); WHITE BLOOD COUNT 6.6 10^3/uL (4.0-10.0)
[2018-12-20 13:49] LABS: ALBUMIN 3.9 GM/DL (3.2-5.2); BILIRUBIN,TOTAL 0.4 MG/DL (0.2-1.0); CALCIUM LEVEL 9.2 MG/DL (8.5-10.1); CREATININE FOR GFR 1.19 MG/DL (0.55-1.30); GLOMERULAR FILTRATION RATE 50.9 (>51); POTASSIUM SERUM 3.9 MEQ/L (3.5-5.1); TOTAL PROTEIN 7.5 GM/DL (6.4-8.2)
[2018-12-20 14:32] LABS: INR 0.93; PROTHROMBIN TIME 12.6 SECONDS (12.1-14.4)
== END ==
LOC: M LAB REF 13:18
PROVIDERS: ATTEND Nurse Practitioner Adult Health
DX: Z01.812 Encounter for preprocedural laboratory examination (principal)

== ENCOUNTER 2018-12-25 09:14 | Day surgery (SDC) | payer OTHER ==
[~2018-12-25] VITALS: Ht 154.9 cm; Wt 84.4 kg
[~2018-12-25 09:14] MED LIST changes: +LIDOCAINE 2% INJ 100 MG/5 ML SDV (FOR ANES.) As Ordered ONE; +NS 1,000 ML IV ONE; +PROPOFOL 200 MG/20 ML VIAL As Ordered ONE
[2018-12-25] MEDS ORDERED: PROPOFOL 200 MG/20 ML VIAL As Ordered ONE (10:37)
--- NOTE | 2018-12-25 10:51 | ROOR ---
Patient Name: Pinky Miles Procedure Date: 12/25/2018 10:23 AM Date of : 1965 Age: 53 Room: [facility] Gender: Female Note Status: Finalized Procedure: Colonoscopy via Stoma with Endoscopy of Yumiko Pouch Indications: Preoperative assessment for reversal of Yumiko pouch Providers: DO Antonia Decker MD: Gunjan MA NP Requesting Provider: Medicines: Propofol per Anesthesia Complications: No immediate complications. Procedure: Pre-Anesthesia Assessment: - Prior to the procedure, a History and Physical was performed, and patient medications and allergies were reviewed. The patient is competent. The risks and benefits of the procedure and the sedation options and risks were discussed with the patient. All questions were answered and informed consent was obtained. Patient identification and proposed procedure were verified by the physician, the nurse, the anesthesiologist and the instructional support technician in the endoscopy suite. Mental Status Examination: alert and oriented. Airway Examination: normal oropharyngeal airway and neck mobility. Respiratory Examination: clear to auscultation. CV Examination: normal. Prophylactic Antibiotics: The patient does not require prophylactic antibiotics. Prior Anticoagulants: The patient has taken no previous anticoagulant or antiplatelet agents. ASA Grade Assessment: II - A patient with mild systemic disease. After reviewing the risks and benefits, the patient was deemed in satisfactory condition to undergo the procedure. The anesthesia plan was to use monitored anesthesia care (MAC). Immediately prior to administration of medications, the patient was re-assessed for adequacy to receive sedatives. The heart rate, respiratory rate, oxygen saturations, blood pressure, adequacy of pulmonary ventilation, and response to care were monitored throughout the procedure. The physical status of the patient was re-assessed after the procedure. The Colonoscope was introduced through the anus and advanced to the cecum, identified by appendiceal orifice and ileocecal valve. The procedure was performed without difficulty. The patient tolerated the procedure well. Findings: Patient is status-post sigmoid colectomy with an end sigmoid colostomy. The exam was otherwise without abnormality. Impression: - The examination was otherwise normal. - No specimens collected. Recommendation: - Discharge patient to home. - Repeat post-surgical lower GI endoscopy in 5 years for screening purposes. - Return to my office in 1 week. Attending Participation: I personally performed the entire procedure. Herman Etienne DO 12/25/2018 10:51:18 AM Electronically signed by Herman Etienne DO Number of Addenda: 0 Note Initiated On: 12/25/2018 10:23 AM Estimated Blood Loss: Estimated blood loss: none.
[2018-12-25 11:10] VITALS: BP 151/83
== END 2018-12-25 11:25 | disposition home or self-care (01) ==
LOC: M OPP 09:14
PROVIDERS: ATTEND Surgery
DX: Z43.3 Encounter for attention to colostomy (principal)

== ENCOUNTER → 2019-01-13 | Outpatient (CLI) | payer OTHER ==
[~2019-01-13] MED LIST changes: -LIDOCAINE 2% INJ 100 MG/5 ML SDV (FOR ANES.) As Ordered ONE; -NS 1,000 ML IV ONE; -PROPOFOL 200 MG/20 ML VIAL As Ordered ONE
--- NOTE | 2019-01-14 02:02 | REP ---
Clinical: Preoperative assessment . Comparison: 11/01/2018 . Technique: PA and lateral. Findings: The mediastinum and cardiac silhouette are normal. The lung hughes are clear and without acute consolidation, effusion, or pneumothorax. The skeletal structures are intact and normal. Impression: 1. No acute cardiopulmonary process. Electronically Signed by Gee Fowler MD 01/14/2019 01:54 A
--- NOTE | 2019-01-14 23:59 | ECGEPIP ---
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
== END ==
LOC: M EKG 11:54
PROVIDERS: ATTEND Nurse Practitioner Adult Health
DX: Z01.818 Encounter for other preprocedural examination (principal)

== ENCOUNTER 2019-04-07 19:56 | Emergency (ER) | payer OTHER, MEDICAID ==
[~2019-04-07] VITALS: Ht 154.9 cm; Wt 90.5 kg
[~2019-04-07 19:56] MED LIST changes: +LISI20TA20; +LISI20TA20 PO; -LISI20TA3; -LISI20TA3 PO
[2019-04-07 21:30] LABS: HEMATOCRIT 49.7 % (36.0-47.0); HEMOGLOBIN 17.3 g/dl (12.0-15.5); MEAN CORPUSCULAR HEMOGLOBIN 30.9 pg (27.0-33.0); MEAN CORPUSCULAR HGB CONC 34.8 g/dl (32.0-36.5); MEAN CORPUSCULAR VOLUME 88.8 fl (80.0-96.0); PLATELET COUNT, AUTOMATED 170 10^3/uL (150-450); WHITE BLOOD COUNT 11.8 10^3/uL (4.0-10.0)
[2019-04-07 21:57] LABS: ALBUMIN 4.7 GM/DL (3.2-5.2); BILIRUBIN,TOTAL 0.7 MG/DL (0.2-1.0); CALCIUM LEVEL 10.5 MG/DL (8.5-10.1); CREATININE FOR GFR 1.96 MG/DL (0.55-1.30); GLOMERULAR FILTRATION RATE 28.5 (>51); POTASSIUM SERUM 4.3 MEQ/L (3.5-5.1); TOTAL PROTEIN 8.2 GM/DL (6.4-8.2)
[2019-04-07 22:05] LABS: AMORPHOUS SEDIMENT SMALL (NEGATIVE); APPEARANCE, URINE CLOUDY (CLEAR); BACTERIA, URINE AUTO NEGATIVE (NEGATIVE); BILIRUBIN, URINE AUTO NEGATIVE (NEGATIVE); BLOOD, URINE BLOOD NEGATIVE (NEGATIVE); COLOR, URINE YELLOW (YELLOW); GLUCOSE, URINE (UA) AUTO NEGATIVE (NEGATIVE); KETONE, URINE AUTO NEGATIVE (NEGATIVE); LEUKOCYTE ESTERASE, URINE AUTO NEGATIVE (NEGATIVE); MUCUS, URINE SMALL (NEGATIVE); NITRITE, URINE AUTO NEGATIVE (NEGATIVE); PROTEIN, URINE AUTO 1+ mg/dL (NEGATIVE); RBC, URINE AUTO 3 /HPF (0-3); SPECIFIC GRAVITY URINE AUTO 1.008 (1.002-1.035); SQUAMOUS EPITHELIAL CELL UR AU 1 /HPF (0-6); UROBILINOGEN, URINE AUTO 0.2 mg/dL (0.0-2.0); WBC, URINE AUTO 5 /HPF (0-3)
[2019-04-08] MEDS ORDERED: NS 500 ML IV ONE (04:15)
[2019-04-08] MEDS ORDERED: NS 1,000 ML IV ONE (04:15)
[2019-04-08 05:22] VITALS: BP 141/94
== END 2019-04-08 05:23 | disposition home or self-care (01) ==
LOC: M ED 19:56
DX: K52.9 Noninfective gastroenteritis and colitis, unspecified (principal); I10 Essential (primary) hypertension; J44.9 Chronic obstructive pulmonary disease, unspecified; D64.9 Anemia, unspecified; F33.9 Major depressive disorder, recurrent, unspecified; Z79.899 Other long term (current) drug therapy; Z88.0 Allergy status to penicillin; Z91.030 Bee allergy status

== ENCOUNTER 2019-04-29 00:11 | Emergency (ER) | payer MEDICAID, OTHER ==
[~2019-04-29] VITALS: Ht 154.9 cm; Wt 86.7 kg
[~2019-04-29 00:11] MED LIST changes: -AZIT500T2 PO; +AZIT500T5 PO; -MECL-68 PO; +MECL1TAB31 PO
[2019-04-29] MEDS ORDERED: CLON0.5T17 PO (00:30)
[2019-04-29] MEDS ORDERED: DULO1CAP4 PO (00:30)
[2019-04-29 03:17] VITALS: BP 110/68
== END 2019-04-29 03:18 | disposition home or self-care (01) ==
LOC: M ED 00:11
DX: F43.20 Adjustment disorder, unspecified (principal); F32.9 Major depressive disorder, single episode, unspecified; I10 Essential (primary) hypertension; J44.9 Chronic obstructive pulmonary disease, unspecified; F17.200 Nicotine dependence, unspecified, uncomplicated; Z88.0 Allergy status to penicillin; Z91.030 Bee allergy status; Z79.899 Other long term (current) drug therapy

== ENCOUNTER → 2019-06-03 | Outpatient (CLI) | payer OTHER ==
[~2019-06-03] MED LIST changes: +AZIT500T2 PO; -AZIT500T5 PO; +CLON0.5T17 PO; +DULO1CAP4 PO; +MECL-68 PO; -MECL1TAB31 PO
--- NOTE | 2019-06-04 04:41 | REP ---
Clinical: Chronic bilateral hand pain. Technique: AP, lateral, bilateral oblique views of the right and left hand. Findings: Right hand demonstrates generalized age-related changes with subtle increased sclerosis and very minimal joint space narrowing and marginal spurring involving the distal interphalangeal joints and to a lesser extent the proximal interphalangeal joints. No acute fracture dislocation. Left hand demonstrates generalized age-related changes with mild increase sclerosis and very mild joint space narrowing with marginal spurring involving the distal interphalangeal joints and to a lesser extent the proximal interphalangeal joints. No acute fracture or dislocation. Impression: Mild essentially generalized age-related changes. Electronically Signed by Gee Fowler MD 06/04/2019 04:33 A
--- NOTE | 2019-06-04 05:12 | REP ---
Clinical: Chronic lower back pain . Technique: AP, lateral, bilateral oblique, flexion/extension and coned-down views. Findings: Alignment and lordosis is maintained. The vertebral bodies including transverse process and spinous processes are intact and normal. There is no evidence for acute fracture / compression injury or subluxation. No evidence for spondylolysis or spondylolisthesis. No significant degenerative change is noted. Impression: Normal age-appropriate lumbosacral spine radiograph series. If the patient remains symptomatic consider MRI for further investigation. Electronically Signed by Gee Fowler MD 06/04/2019 05:03 A
== END ==
LOC: M RAD 15:11
PROVIDERS: ATTEND Nurse Practitioner Adult Health
DX: M54.5 Low back pain (principal)

== ENCOUNTER 2019-06-26 11:34 | Emergency (ER) | payer OTHER ==
[~2019-06-26] VITALS: Ht 157.5 cm; Wt 87.1 kg
[~2019-06-26 11:34] MED LIST changes: -AZIT500T2 PO; +AZIT500T5 PO
[2019-06-26] MEDS ORDERED: IPRA6SP (11:58)
[2019-06-26] MEDS ORDERED: FLUT1INH2 (11:58)
[2019-06-26] MEDS ORDERED: ACET-683 PO (11:58)
[2019-06-26 12:19] LABS: BASO # 0.1 10^3/uL (0.0-0.2); BASO % 1.3 % (0.0-1.0); EOS # 0.3 10^3/uL (0.0-0.5); EOS % 3.7 % (0.0-3.0); HEMATOCRIT 44.4 % (36.0-47.0); HEMOGLOBIN 15.2 g/dl (12.0-15.5); LYMPH # 1.4 10^3/uL (1.5-5.0); LYMPH % 20.1 % (24.0-44.0); MEAN CORPUSCULAR HEMOGLOBIN 31.9 pg (27.0-33.0); MEAN CORPUSCULAR HGB CONC 34.2 g/dl (32.0-36.5); MEAN CORPUSCULAR VOLUME 93.1 fl (80.0-96.0); NEUTROPHILS # 4.2 10^3/uL (1.5-8.5); NEUTROPHILS % 60.3 % (36.0-66.0); PLATELET COUNT, AUTOMATED 151 10^3/uL (150-450); RED BLOOD COUNT 4.77 10^6/uL (4.00-5.40)
--- NOTE | 2019-06-26 12:30 | REP ---
Chest x-ray: Two views. History: Chest pain . Comparison study: January 13, 2019 . Findings: The lungs are well inflated and free of infiltrate. The pleural angles are sharp. The heart size is normal. Pulmonary vasculature is not increased. No significant bony abnormality is seen. Impression: Negative chest x-ray. Electronically Signed by Dionte Coates MD 06/26/2019 12:21 P
[2019-06-26 12:48] LABS: BLOOD UREA NITROGEN 5 MG/DL (7-18); CARBON DIOXIDE LEVEL 27 MEQ/L (21-32); CHLORIDE LEVEL 107 MEQ/L (98-107); CREATININE FOR GFR 0.78 MG/DL (0.55-1.30); GLOMERULAR FILTRATION RATE > 60.0 (>51); GLUCOSE, FASTING 94 MG/DL (70-100); NT-PRO BNP 89 PG/ML (<125); POTASSIUM SERUM 4.1 MEQ/L (3.5-5.1); SODIUM LEVEL 139 MEQ/L (136-145)
[2019-06-26] MEDS ORDERED: BENZ200C70 PO (13:08)
[2019-06-26 13:17] VITALS: BP 142/94
--- NOTE | 2019-06-26 15:43 | ECGEPIP ---
[facility] - ED Test Date: 2019-06-26 Pat Name: AUSTIN MURPHY Department: Room: - Gender: Female [place] [place]: CT : 1965 Requested By: AGUSTIN SALASP Order Number: [id number] Reading MD: Rosy Sampson Measurements Intervals [place] Rate: 85 P: 53 CT: 186 QRS: 50 QRSD: 73 T: 50 QT: 348 QTc: 416 Interpretive Statements SINUS RHYTHM SIMILAR 01/13/19 Electronically Signed on 06-26-2019 15:43:46 EDT by Rosy Sampson
== END 2019-06-26 13:19 | disposition home or self-care (01) ==
LOC: M ED 11:34
DX: J06.9 Acute upper respiratory infection, unspecified (principal); I10 Essential (primary) hypertension; J44.9 Chronic obstructive pulmonary disease, unspecified; G89.29 Other chronic pain; M54.9 Dorsalgia, unspecified; Z79.899 Other long term (current) drug therapy; Z88.0 Allergy status to penicillin; F17.210 Nicotine dependence, cigarettes, uncomplicated

== ENCOUNTER → 2019-07-31 | Outpatient (REF) | payer OTHER, MEDICAID ==
[~2019-07-31] MED LIST changes: +BENZ200C70 PO; +FLUT1INH2; +IPRA6SP
[2019-07-31 19:37] LABS: ALBUMIN 3.8 GM/DL (3.2-5.2); ALT/SGPT 116 U/L (12-78); BILIRUBIN,TOTAL 0.6 MG/DL (0.2-1.0); BLOOD UREA NITROGEN 12 MG/DL (7-18); CALCIUM LEVEL 9.2 MG/DL (8.5-10.1); CARBON DIOXIDE LEVEL 32 MEQ/L (21-32); CHLORIDE LEVEL 96 MEQ/L (98-107); GLOMERULAR FILTRATION RATE > 60.0 (>51); GLUCOSE, FASTING 120 MG/DL (70-100); SODIUM LEVEL 137 MEQ/L (136-145); TOTAL PROTEIN 7.5 GM/DL (6.4-8.2)
== END ==
LOC: M LAB REF 18:28
PROVIDERS: ATTEND Nurse Practitioner Adult Health
DX: R94.4 Abnormal results of kidney function studies (principal)

== ENCOUNTER → 2019-09-15 | Outpatient (REF) | payer OTHER, MEDICAID ==
[~2019-09-15] MED LIST changes: -MECL-68 PO; +MECL1TAB31 PO
== END ==
LOC: M LAB REF 19:02
PROVIDERS: ATTEND Physician Assistant
DX: Z12.4 Encounter for screening for malignant neoplasm of cervix (principal)

== ENCOUNTER → 2019-09-22 | Outpatient (CLI) | payer OTHER ==
--- NOTE | 2019-09-22 09:14 | REPMRS ---
Patient History The patient states she had a clinical breast exam in September 2019. Family history of unknown cancer at age 62 in brother. Digital Mammo Screening Bilat: September 22, 2019 - Exam #: [id number] Bilateral CC and MLO view(s) were taken. Technologist: Agatha Chandler, Technologist Prior study comparison: April 28, 2016, bilateral digital mammo screening bilat performed at [facility]. February 23, 2015, digital mammo diagnostic bilateral performed at [facility]. FINDINGS: The breast tissue is heterogeneously dense. This may lower the sensitivity of mammography. There is a moderate amount of heterogeneously dense fibroglandular tissue which is fairly symmetric. There is no interval development of dominant mass, architectural distortion, or grouped microcalcification typical of malignancy. There has been no change in the appearance of the mammogram from the prior studies. 3-D tomosynthesis shows no additional findings. Assessment: BI-RADS/ACR category 1 mammogram. Negative Mammogram. Recommendation Routine screening mammogram of both breasts in 1 year (for women over age 40). This patient's Lifetime Breast Cancer RIsk is estimated at 8.0 %. This mammogram was interpreted with the aid of an FDA-approved computer-aided dectection system. Electronically Signed By: Aidan Coates MD 09/22/19 0913
== END ==
LOC: M RAD 08:08
PROVIDERS: ATTEND Physician Assistant
DX: Z12.31 Encounter for screening mammogram for malignant neoplasm of breast (principal); Z80.8 Family history of malignant neoplasm of other organs or systems

== ENCOUNTER → 2019-10-29 | Outpatient (REF) | payer OTHER ==
[2019-10-29 19:23] LABS: BASO # 0.1 10^3/uL (0.0-0.2); BASO % 2.2 % (0.0-1.0); EOS # 0.3 10^3/uL (0.0-0.5); EOS % 5.5 % (0.0-3.0); HEMOGLOBIN 16.6 g/dl (12.0-15.5); LYMPH # 1.3 10^3/uL (1.5-5.0); MEAN CORPUSCULAR HEMOGLOBIN 32.4 pg (27.0-33.0); MEAN CORPUSCULAR HGB CONC 35.3 g/dl (32.0-36.5); MEAN CORPUSCULAR VOLUME 91.6 fl (80.0-96.0); MONO # 0.6 10^3/uL (0.0-0.8); MONO % 11.4 % (0.0-5.0); NEUTROPHILS # 2.8 10^3/uL (1.5-8.5); NEUTROPHILS % 54.7 % (36.0-66.0); PLATELET COUNT, AUTOMATED 174 10^3/uL (150-450); RED BLOOD COUNT 5.13 10^6/uL (4.00-5.40); WHITE BLOOD COUNT 5.1 10^3/uL (4.0-10.0)
[2019-10-29 20:31] LABS: ALBUMIN 4.2 GM/DL (3.2-5.2); ALT/SGPT 174 U/L (12-78); BILIRUBIN,TOTAL 1.4 MG/DL (0.2-1.0); BLOOD UREA NITROGEN 9 MG/DL (7-18); CALCIUM LEVEL 9.4 MG/DL (8.5-10.1); CARBON DIOXIDE LEVEL 32 MEQ/L (21-32); CHLORIDE LEVEL 94 MEQ/L (98-107); CREATININE FOR GFR 0.86 MG/DL (0.55-1.30); GLOMERULAR FILTRATION RATE > 60.0 (>51); GLUCOSE, FASTING 129 MG/DL (70-100); POTASSIUM SERUM 2.7 MEQ/L (3.5-5.1); SODIUM LEVEL 133 MEQ/L (136-145); TOTAL PROTEIN 7.2 GM/DL (6.4-8.2)
== END ==
LOC: M LAB REF 18:56
PROVIDERS: ATTEND Nurse Practitioner Adult Health
DX: I10 Essential (primary) hypertension (principal)

== ENCOUNTER → 2019-11-03 | Outpatient (REF) | payer OTHER, MEDICAID ==
[2019-11-03 19:19] LABS: ALBUMIN 3.9 GM/DL (3.2-5.2); ALT/SGPT 131 U/L (12-78); BILIRUBIN,TOTAL 0.7 MG/DL (0.2-1.0); BLOOD UREA NITROGEN 19 MG/DL (7-18); CALCIUM LEVEL 9.9 MG/DL (8.5-10.1); CARBON DIOXIDE LEVEL 33 MEQ/L (21-32); CHLORIDE LEVEL 91 MEQ/L (98-107); GLOMERULAR FILTRATION RATE > 60.0 (>51); GLUCOSE, FASTING 192 MG/DL (70-100); POTASSIUM SERUM 3.6 MEQ/L (3.5-5.1); SODIUM LEVEL 130 MEQ/L (136-145); TOTAL PROTEIN 7.3 GM/DL (6.4-8.2)
== END ==
LOC: M LAB REF 18:08
PROVIDERS: ATTEND Nurse Practitioner Family
DX: E87.6 Hypokalemia (principal)

== ENCOUNTER → 2020-01-28 | Outpatient (REF) | payer OTHER, MEDICAID ==
[~2020-01-28] MED LIST changes: +CYCL-707 PO; -CYCL10TA PO
[2020-01-28 19:29] LABS: ALBUMIN 3.9 GM/DL (3.2-5.2); ALT/SGPT 100 U/L (12-78); BILIRUBIN,TOTAL 0.9 MG/DL (0.2-1.0); BLOOD UREA NITROGEN 9 MG/DL (7-18); CALCIUM LEVEL 9.1 MG/DL (8.5-10.1); CARBON DIOXIDE LEVEL 29 MEQ/L (21-32); CHLORIDE LEVEL 102 MEQ/L (98-107); GLOMERULAR FILTRATION RATE > 60.0 (>51); GLUCOSE, FASTING 101 MG/DL (70-100); POTASSIUM SERUM 4.2 MEQ/L (3.5-5.1); SODIUM LEVEL 138 MEQ/L (136-145); TOTAL PROTEIN 7.4 GM/DL (6.4-8.2)
== END ==
LOC: M LAB REF 17:07
PROVIDERS: ATTEND Nurse Practitioner Adult Health
DX: E87.6 Hypokalemia (principal); I10 Essential (primary) hypertension

== ENCOUNTER 2020-03-01 23:21 | Emergency (ER) | payer MEDICAID, OTHER ==
[2020-03-01 23:26] VITALS: BP 118/78
--- NOTE | 2020-03-02 00:49 | REPVR ---
PROCEDURE INFORMATION: Exam: CT Maxillofacial Without Contrast Exam date and time: 03/01/2020 11:49 PM Age: 55 years old Clinical indication: Face pain; Additional info: Blunt trauma TECHNIQUE: Imaging protocol: Computed tomography images of the face without contrast. Radiation optimization: All CT scans at this facility use at least one of these dose optimization techniques: automated exposure control; mA and/or kV adjustment per patient size (includes targeted exams where dose is matched to clinical indication); or iterative reconstruction. COMPARISON: No relevant prior studies available. FINDINGS: Orbits: No orbital hemorrhage. Bones/joints: Inferior mandible is partially excluded from the field of view. Visualized osseous structures are without acute fracture or dislocation. Sinuses: Normal. No air-fluid levels. Soft tissues: Unremarkable. IMPRESSION: No acute osseous abnormality to the degree visualized. Electronically signed by: Charlie Mayorga On 03/02/2020 00:49:29 AM
--- NOTE | 2020-03-02 00:53 | REPVR ---
PROCEDURE INFORMATION: Exam: CT Cervical Spine Without Contrast Exam date and time: 03/01/2020 11:49 PM Age: 55 years old Clinical indication: Neck pain; Additional info: Blunt trauma TECHNIQUE: Imaging protocol: Computed tomography images of the cervical spine without contrast. Radiation optimization: All CT scans at this facility use at least one of these dose optimization techniques: automated exposure control; mA and/or kV adjustment per patient size (includes targeted exams where dose is matched to clinical indication); or iterative reconstruction. COMPARISON: No relevant prior studies available. FINDINGS: Vertebrae: Trace anterolisthesis of C5 on C6. Vertebral body heights are preserved. Nonspecific straightening. Mild degenerative change about the dens. Mild prevertebral osteophytosis. There are mild facet joint degenerative changes. No acute cervical spine fracture. Discs/Spinal canal/Neural foramina: No definite significant central canal stenosis. Soft tissues: Unremarkable. Lungs: Lung apices are normal. Pleural space: No visible pneumothorax. Vasculature: Vascular calcification. IMPRESSION: No acute cervical spine fracture. Electronically signed by: Charlie Mayorga On 03/02/2020 00:52:34 AM
--- NOTE | 2020-03-02 00:55 | REPVR ---
PROCEDURE INFORMATION: Exam: CT Head Without Contrast Exam date and time: 03/01/2020 11:49 PM Age: 55 years old Clinical indication: Injury or trauma; Fall; Initial encounter; Concussion / head injury; Consciousness not specified; Additional info: Blunt trauma TECHNIQUE: Imaging protocol: Computed tomography of the head without contrast. Radiation optimization: All CT scans at this facility use at least one of these dose optimization techniques: automated exposure control; mA and/or kV adjustment per patient size (includes targeted exams where dose is matched to clinical indication); or iterative reconstruction. COMPARISON: CT Head without contrast 08/06/2017 6:27 PM FINDINGS: Brain: Normal. No hemorrhage. Unremarkable white matter. No mass effect. Ventricles: Normal. No ventriculomegaly. Bones/joints: Unremarkable. No acute fracture. Sinuses: Visualized sinuses are unremarkable. No fluid levels. Mastoid air cells: Partial opacification of the left mastoid air cells. Soft tissues: Unremarkable. IMPRESSION: No acute intracranial abnormality. Electronically signed by: Charlie Mayorga On 03/02/2020 00:54:53 AM
== END 2020-03-02 01:58 | disposition home or self-care (01) ==
LOC: M ED 23:21
DX: S00.81XA Abrasion of other part of head, initial encounter (principal); W17.89XA Other fall from one level to another, initial encounter; Y92.830 Public park as the place of occurrence of the external cause; Z79.899 Other long term (current) drug therapy; F10.129 Alcohol abuse with intoxication, unspecified; Y90.1 Blood alcohol level of 20-39 mg/100 ml; Z88.0 Allergy status to penicillin; Z91.030 Bee allergy status
CPT/HCPCS: 36415; 70450; 70486; 72125; 99284; G0480

== ENCOUNTER → 2020-08-04 | Outpatient (REF) | payer OTHER ==
[~2020-08-04] MED LIST changes: +AMLO1TAB24 PO; -AMLO5TAB6 PO
[2020-08-04 17:25] LABS: ALBUMIN 4.6 GM/DL (3.2-5.2); ALT/SGPT 95 U/L (12-78); BLOOD UREA NITROGEN 9 MG/DL (7-18); CALCIUM LEVEL 10.3 MG/DL (8.5-10.1); CARBON DIOXIDE LEVEL 28 MEQ/L (21-32); CHLORIDE LEVEL 98 MEQ/L (98-107); CREATININE FOR GFR 0.82 MG/DL (0.55-1.30); GLOMERULAR FILTRATION RATE > 60.0 (>51); GLUCOSE, FASTING 105 MG/DL (70-100); POTASSIUM SERUM 3.9 MEQ/L (3.5-5.1); SODIUM LEVEL 135 MEQ/L (136-145); TOTAL PROTEIN 8.7 GM/DL (6.4-8.2)
== END ==
LOC: M LAB REF 16:18
PROVIDERS: ATTEND Nurse Practitioner Adult Health
DX: I10 Essential (primary) hypertension (principal)

== ENCOUNTER 2020-10-16 00:47 | Emergency (ER) | payer OTHER ==
[~2020-10-16] VITALS: Ht 154.9 cm; Wt 75.0 kg
[~2020-10-16 00:47] MED LIST changes: +LISI10TA22 PO; -LISI10TA4 PO; +METH-1164 PO; -METH1TAB40 PO
[2020-10-16 07:12] LABS: HEMATOCRIT 45.3 % (36.0-47.0); HEMOGLOBIN 15.1 g/dl (12.0-15.5); MEAN CORPUSCULAR HEMOGLOBIN 33.5 pg (27.0-33.0); MEAN CORPUSCULAR HGB CONC 33.3 g/dl (32.0-36.5); MEAN CORPUSCULAR VOLUME 100.4 fl (80.0-96.0); PLATELET COUNT, AUTOMATED 171 10^3/uL (150-450); RED BLOOD COUNT 4.51 10^6/uL (4.00-5.40); WHITE BLOOD COUNT 5.4 10^3/uL (4.0-10.0)
[2020-10-16] MEDS ORDERED: HYDR12.55 PO (07:32)
[2020-10-16] MEDS ORDERED: ALBUTEROL 90 MCG/ACT 8GM HFA INHALER INH ONE (07:45)
[2020-10-16 07:53] LABS: ACETAMINOPHEN LEVEL < 2.0 UG/ML (10.0-30.0); ALBUMIN 3.5 GM/DL (3.2-5.2); ALT/SGPT 81 U/L (12-78); BILIRUBIN,DIRECT 0.1 MG/DL (0.0-0.2); BILIRUBIN,TOTAL 0.3 MG/DL (0.2-1.0); BLOOD UREA NITROGEN 8 MG/DL (7-18); CALCIUM LEVEL 8.6 MG/DL (8.5-10.1); CARBON DIOXIDE LEVEL 24 MEQ/L (21-32); CHLORIDE LEVEL 107 MEQ/L (98-107); CREATININE FOR GFR 0.71 MG/DL (0.55-1.30); ETHYL ALCOHOL (ETHANOL) 0.093 % (0.000-0.010); GLOMERULAR FILTRATION RATE > 60.0 (>51); GLUCOSE, FASTING 89 MG/DL (70-100); POTASSIUM SERUM 4.3 MEQ/L (3.5-5.1); SALICYLATE LEVEL 3.5 MG/DL (5.0-30.0); SODIUM LEVEL 141 MEQ/L (136-145)
[2020-10-16] MEDS ORDERED: FLUTISP NARES (08:35)
[2020-10-16] MEDS ORDERED: POTA20TA6 PO (08:35)
[2020-10-16] MEDS ORDERED: HYDR-3490 PO (08:35)
[2020-10-16] MEDS ORDERED: LISI10TA22 PO (08:35)
[2020-10-16] MEDS ORDERED: DULoxetine 30 MG CAP (CYMBALTA) PO ONE (10:45)
[2020-10-16] MEDS ORDERED: hydroCHLOROthiazide 25 MG TAB PO ONE (10:45)
[2020-10-16 11:04] VITALS: BP 174/99
== END 2020-10-16 11:38 | disposition home or self-care (01) ==
LOC: M ED 00:47
DX: F43.20 Adjustment disorder, unspecified (principal); F10.229 Alcohol dependence with intoxication, unspecified; J44.9 Chronic obstructive pulmonary disease, unspecified; I10 Essential (primary) hypertension; F43.10 Post-traumatic stress disorder, unspecified; D64.9 Anemia, unspecified; Z79.899 Other long term (current) drug therapy; Z88.0 Allergy status to penicillin; Z91.030 Bee allergy status

== ENCOUNTER → 2022-09-26 | Outpatient (REF) | payer OTHER ==
[~2022-09-26] MED LIST changes: +ALBU2.5V10 INH; -ALBU83IN INH; +FLUTISP NARES; +HYDR-3490 PO; +HYDR12.55 PO; -LISI20TA20; -LISI20TA20 PO; +LISI20TA37; +LISI20TA37 PO; +POTA-151 PO
== END ==
LOC: M LAB REF 12:30
PROVIDERS: ATTEND Physician Assistant
DX: E87.6 Hypokalemia (principal)

== ENCOUNTER → 2022-11-06 | Outpatient (REF) | payer OTHER ==
[~2022-11-06] MED LIST changes: +MONT-5 PO; -SING10TA32 PO
[2022-11-06 12:41] LABS: ALBUMIN 3.8 G/DL (3.2-5.2); ALKALINE PHOSPHATASE 168 U/L (46-116); ALT/SGPT 112 U/L (7.0-40); AST/SGOT 100 U/L (<34); BLOOD UREA NITROGEN 10 MG/DL (9-23); CALCIUM LEVEL 9.6 MG/DL (8.5-10.1); CARBON DIOXIDE LEVEL 32 MMOL/L (20-31); CHLORIDE LEVEL 94 MMOL/L (98-107); CHOLESTEROL LEVEL 268 MG/DL (<200); CREATININE FOR GFR 0.69 MG/DL (0.55-1.30); GLOMERULAR FILTRATION RATE > 60.0 (>51); GLUCOSE, FASTING 104 MG/DL (60-100); HDL CHOLESTEROL 60.9 MG/DL (>40); LDL CHOLESTEROL 174.1 MG/DL (<100); NON-HDL-C 207 MG/DL; POTASSIUM SERUM 3.5 MMOL/L (3.5-5.1); SODIUM LEVEL 132 MMOL/L (136-145); TOTAL PROTEIN 7.6 G/DL (5.7-8.2); TRIGLYCERIDES LEVEL 165 MG/DL (<150)
[2022-11-06 12:44] LABS: TOTAL 25(OH) VITAMIN D 13.2 NG/ML (20.0-100.0)
== END ==
LOC: M LAB REF 12:08
PROVIDERS: ATTEND Physician Assistant
DX: I10 Essential (primary) hypertension (principal); E55.9 Vitamin D deficiency, unspecified; D64.9 Anemia, unspecified; E66.9 Obesity, unspecified

== ENCOUNTER → 2022-12-11 | Outpatient (CLI) | payer OTHER | LOC: M WHC 07:19 | PROVIDERS: ATTEND Physician Assistant | DX: R74.01 Elevation of levels of liver transaminase levels (principal) ==

== ENCOUNTER → 2022-12-27 | Outpatient (REF) | payer OTHER ==
[~2022-12-27] MED LIST changes: +FLUT50SP17 NARES; -FLUTISP NARES
== END ==
LOC: M LAB REF 17:21
PROVIDERS: ATTEND Physician Assistant
DX: Z12.4 Encounter for screening for malignant neoplasm of cervix (principal); Z11.3 Encounter for screening for infections with a predominantly sexual mode of transmission

== ENCOUNTER → 2023-02-19 | Outpatient (REF) | payer OTHER ==
[2023-02-19 13:25] LABS: HEMOGLOBIN A1c 5.3 % (4.0-6.0)
[2023-02-19 13:42] LABS: ALBUMIN 3.8 G/DL (3.2-5.2); ALKALINE PHOSPHATASE 277 U/L (46-116); ALT/SGPT 82 U/L (7.0-40); AST/SGOT 81 U/L (<34); BLOOD UREA NITROGEN 9 MG/DL (9-23); CALCIUM LEVEL 9.6 MG/DL (8.5-10.1); CARBON DIOXIDE LEVEL 32 MMOL/L (20-31); CHLORIDE LEVEL 94 MMOL/L (98-107); CHOLESTEROL LEVEL 252 MG/DL (<200); CHOLESTEROL RISK RATIO 3.91 (<5); CREATININE FOR GFR 0.63 MG/DL (0.55-1.30); GLOMERULAR FILTRATION RATE > 60.0 (>51); GLUCOSE, FASTING 100 MG/DL (60-100); HDL CHOLESTEROL 64.4 MG/DL (>40); NON-HDL-C 187.6 MG/DL; POTASSIUM SERUM 3.4 MMOL/L (3.5-5.1); SODIUM LEVEL 134 MMOL/L (136-145); TOTAL PROTEIN 7.2 G/DL (5.7-8.2); TRIGLYCERIDES LEVEL 138 MG/DL (<150)
[2023-02-19 13:43] LABS: FOLATE 4.4 NG/ML (>5.4); TOTAL 25(OH) VITAMIN D 14.1 NG/ML (20.0-100.0)
[2023-02-19 13:44] LABS: VITAMIN B12 LEVEL 641 PG/ML (211-911)
== END ==
LOC: M LAB REF 12:06
PROVIDERS: ATTEND Physician Assistant
DX: E78.1 Pure hyperglyceridemia (principal); R73.01 Impaired fasting glucose; E55.9 Vitamin D deficiency, unspecified; D64.9 Anemia, unspecified; I10 Essential (primary) hypertension; F10.10 Alcohol abuse, uncomplicated

== ENCOUNTER → 2023-09-27 | Outpatient (REF) | payer OTHER ==
[~2023-09-27] MED LIST changes: -FLUT50SP17 NARES; +FLUTISP NARES; +MECL-209 PO; -MECL1TAB31 PO
[2023-09-27 13:28] LABS: ALBUMIN 3.9 G/DL (3.2-5.2); ALKALINE PHOSPHATASE 376 U/L (46-116); ALT/SGPT 100 U/L (7.0-40); AST/SGOT 124 U/L (<34); BLOOD UREA NITROGEN 11 MG/DL (9-23); CALCIUM LEVEL 10.2 MG/DL (8.5-10.1); CARBON DIOXIDE LEVEL 31 MMOL/L (20-31); CHLORIDE LEVEL 98 MMOL/L (98-107); CHOLESTEROL LEVEL 229 MG/DL (<200); CHOLESTEROL RISK RATIO 2.59 (<5); CREATININE FOR GFR 0.72 MG/DL (0.55-1.30); FERRITIN 465.8 NG/ML (7.3-270.7); FOLATE 10.28 NG/ML (>5.4); GLOMERULAR FILTRATION RATE > 60.0 (>51); GLUCOSE, FASTING 97 MG/DL (60-100); HDL CHOLESTEROL 88.1 MG/DL (>40); LDL CHOLESTEROL 117.7 MG/DL (<100); NON-HDL-C 140.9 MG/DL; POTASSIUM SERUM 3.5 MMOL/L (3.5-5.1); SODIUM LEVEL 135 MMOL/L (136-145); THYROID STIMULATING HORMONE 4.765 uIU/ML (0.55-4.78); TOTAL PROTEIN 7.3 G/DL (5.7-8.2); TRIGLYCERIDES LEVEL 116 MG/DL (<150)
== END ==
LOC: M LAB REF 12:26
PROVIDERS: ATTEND Nurse Practitioner Family
DX: E78.5 Hyperlipidemia, unspecified (principal); R74.01 Elevation of levels of liver transaminase levels

== ENCOUNTER → 2023-11-08 | Outpatient (REF) | payer OTHER ==
[~2023-11-08] MED LIST changes: -KLON0.5T PO; +KLON0.5T8 PO
[2023-11-08 18:20] LABS: BASO # 0.1 10^3/uL (0.0-0.2); BASO % 1.8 % (0.0-1.0); EOS # 0.2 10^3/uL (0.0-0.5); HEMATOCRIT 45.3 % (36.0-47.0); HEMOGLOBIN 16.3 g/dl (12.0-15.5); LYMPH # 2.1 10^3/uL (1.5-5.0); LYMPH % 34.9 % (24.0-44.0); MEAN CORPUSCULAR HEMOGLOBIN 33.5 pg (27.0-33.0); MEAN CORPUSCULAR VOLUME 93.2 fl (80.0-96.0); MONO # 0.8 10^3/uL (0.0-0.8); MONO % 12.7 % (2.0-8.0); NEUTROPHILS # 2.8 10^3/uL (1.5-8.5); NEUTROPHILS % 46.4 % (36.0-66.0); PLATELET COUNT, AUTOMATED 149 10^3/uL (150-450); RED BLOOD COUNT 4.86 10^6/uL (4.00-5.40)
[2023-11-08 18:54] LABS: PERCENT SATURATION 40.9 % (13.2-45.0)
[2023-11-08 18:56] LABS: FERRITIN 336.4 NG/ML (7.3-270.7)
[2023-11-08 18:57] LABS: FOLATE 9.6 NG/ML (>5.4)
== END ==
LOC: M LAB REF 17:05
PROVIDERS: ATTEND Physician Assistant
DX: D64.9 Anemia, unspecified (principal)

== ENCOUNTER → 2023-11-20 | Outpatient (CLI) | payer OTHER | LOC: M WHC 08:55 | PROVIDERS: ATTEND Physician Assistant | DX: Z12.31 Encounter for screening mammogram for malignant neoplasm of breast (principal); Z13.820 Encounter for screening for osteoporosis; E83.52 Hypercalcemia; R92.333 Mammographic heterogeneous density, bilateral breasts ==

== ENCOUNTER → 2023-12-19 | Outpatient (CLI) | payer OTHER | LOC: M PLAIMG 10:15 | PROVIDERS: ATTEND Pain Medicine Interventional Pain Medicine | DX: M54.16 Radiculopathy, lumbar region (principal); M47.812 Spondylosis without myelopathy or radiculopathy, cervical region; M50.322 Other cervical disc degeneration at C5-C6 level ==

== ENCOUNTER → 2023-12-23 | Outpatient (CLI) | payer OTHER ==
[2023-12-23 09:32] LABS: ALBUMIN 3.3 G/DL (3.2-5.2); BILIRUBIN,DIRECT 0.8 MG/DL (<0.4); BILIRUBIN,TOTAL 1.5 MG/DL (0.3-1.2); CHOLESTEROL RISK RATIO 2.56 (<5); HDL CHOLESTEROL 84.5 MG/DL (>40); LDL CHOLESTEROL 96.3 MG/DL (<100); NON-HDL-C 132.5 MG/DL; TOTAL PROTEIN 7.1 G/DL (5.7-8.2)
== END ==
LOC: M LAB 08:22
PROVIDERS: ATTEND Physician Assistant
DX: E78.2 Mixed hyperlipidemia (principal)

== ENCOUNTER → 2024-01-23 | Outpatient (REF) | payer OTHER ==
[2024-01-23 18:42] LABS: ALBUMIN 3.6 G/DL (3.2-5.2); BILIRUBIN,DIRECT 2.1 MG/DL (<0.4); BILIRUBIN,TOTAL 2.9 MG/DL (0.3-1.2); TOTAL PROTEIN 7.4 G/DL (5.7-8.2)
== END ==
LOC: M LAB REF 16:41
PROVIDERS: ATTEND Physician Assistant
DX: G89.29 Other chronic pain (principal); M54.50 Low back pain, unspecified

== ENCOUNTER → 2024-01-31 | Outpatient (REF) | payer OTHER ==
[2024-02-07 09:10] LABS: CANNABINOID, URINE Positive (Cutoff=20); CARBOXY THC (GC/MS) >300 ng/mL (Cutoff=10); CREATININE, URINE 153.3 mg/dL (20.0-300.0); TRAMADOL, URINE Positive (Cutoff=200); TRAMADOL, URINE (GC/MS) >5000 ng/mL (Cutoff=100)
== END ==
LOC: M LAB REF 16:19
PROVIDERS: ATTEND Physician Assistant
DX: Z79.899 Other long term (current) drug therapy (principal)

== ENCOUNTER → 2024-03-10 | Outpatient (REF) | payer OTHER ==
[2024-03-10 15:27] LABS: CHOLESTEROL LEVEL 323 MG/DL (<200); CHOLESTEROL RISK RATIO 5.89 (<5); HDL CHOLESTEROL 54.8 MG/DL (>40); IRON (FE) 136 UG/DL (50-170); LDL CHOLESTEROL 209.6 MG/DL (<100); NON-HDL-C 268.2 MG/DL; TOTAL IRON BINDING CAPACITY 302 UG/DL (250-425); TRIGLYCERIDES LEVEL 293 MG/DL (<150)
[2024-03-10 15:29] LABS: HEPATITIS B SURFACE ANTIBODY POSITIVE (POSITIVE)
[2024-03-10 15:40] LABS: HEPATITIS B SURFACE ANTIGEN NEGATIVE (NEGATIVE)
[2024-03-10 16:01] LABS: HEPATITIS B CORE ANTIBODY IGM NEGATIVE (NEGATIVE)
== END ==
LOC: M LAB REF 12:02
PROVIDERS: ATTEND Nurse Practitioner Family
DX: E78.2 Mixed hyperlipidemia (principal); R94.5 Abnormal results of liver function studies

== ENCOUNTER 2024-09-07 11:01 | Emergency (ER) | payer OTHER ==
[~2024-09-07] VITALS: Ht 154.9 cm; Wt 72.8 kg
[2024-09-07] MEDS ORDERED: POTA10CA70 (11:10)
[2024-09-07] MEDS ORDERED: BENZ200C70 PO (12:24)
[2024-09-07 12:37] VITALS: BP 138/73; TEMP 98.4; O2SAT 95
== END 2024-09-07 12:40 | disposition home or self-care (01) ==
LOC: M ED 11:01
DX: J09.X2 Influenza due to identified novel influenza A virus with other respiratory manifestations (principal); J44.9 Chronic obstructive pulmonary disease, unspecified; N18.9 Chronic kidney disease, unspecified; Z88.0 Allergy status to penicillin; Z91.030 Bee allergy status; Z79.51 Long term (current) use of inhaled steroids; Z79.899 Other long term (current) drug therapy

== ENCOUNTER → 2025-05-08 | Outpatient (CLI) | payer OTHER ==
[~2025-05-08] MED LIST changes: -IBUP-1022 PO; +IBUP600T42 PO; +POTA10CA70
== END ==
LOC: M RAD 08:10
PROVIDERS: ATTEND Nurse Practitioner Family
DX: F10.10 Alcohol abuse, uncomplicated (principal)

== ENCOUNTER → 2025-05-20 | Outpatient (REF) | payer OTHER ==
[2025-05-20 17:59] LABS: CALCIUM LEVEL 9.9 MG/DL (8.5-10.1); CARBON DIOXIDE LEVEL 32 MMOL/L (20-31); CHLORIDE LEVEL 95 MMOL/L (98-107); CREATININE FOR GFR 0.69 MG/DL (0.55-1.30); GLOMERULAR FILTRATION RATE > 90.0 (>51); PHOSPHORUS LEVEL 3.6 MG/DL (2.5-4.9); POTASSIUM SERUM 3.4 MMOL/L (3.5-5.1); SODIUM LEVEL 137 MMOL/L (136-145)
== END ==
LOC: M LAB REF 16:31
PROVIDERS: ATTEND Nurse Practitioner Family
DX: K83.8 Other specified diseases of biliary tract (principal)